=== PATIENT | female | born 1940 | race Caucasian/White ===

== ENCOUNTER → 2016-09-01 | Outpatient (CLI) | payer MEDICARE, BC ==
[~2016-09-01] MED LIST: /ACETCOD2T PO; /ESCI20TA PO; /MIRT15TA PO; ALPR0.25 PO; ALPR0.5T3 PO; AMLO10TA2 PO; AMLO5TAB2 PO; ASPI1TAB PO; ASPI81TA4 PO; ASPI81TAEC PO; ATOR1TAB19 PO; ATOR1TAB21 PO; AUGM500T34 PO; AVAP150T PO; AVAP300T23 PO; CALCCHW8 PO; CARI350T19 PO; CARI350T20 PO; CARV12.5 PO; CARV6.25 PO; CENTTAB PO; DIGO25TA PO; ESCI20TA PO; FERR325T3 PO; FLAG500T PO; FOLI1TAB2 PO; FURO20TA2 PO; FURO40TA2 PO; GASTROGRAFIN SOLUTION 30ML (Q9963) As Ordered ONE; GI COCTAIL PO; IPRA6SP; IRBE150T12 PO; IRBE300T10 PO; IRON65TA PO; ISOVUE-370 76% 100ML VIAL (Q9967) As Ordered ONE; LASI20TA PO; LEVO112T25 PO; LIDO2.5C15 TOP; LIDO2SO SS; LOPR50TA PO; MAGN200T PO; MICR10CA PO; MIRT15TA3 PO; MIRT30TA3 PO; OMEP20CA3 PO; ONDA1TAB16 PO; ONETAB16 PO; PERC5TAB6 PO; POTA10PO PO; REME15TA PO; ROPI0.25 PO; SYNT112T2 PO; TYLETAB14 PO; VITA-130 PO; VITA500T53 PO; VITMTA PO
--- NOTE | 2016-09-01 18:43 | REP ---
CT of the chest with IV contrast: Comparison is 2015. There is a focal pleural-based mass-like density posteromedially in the right lower lobe on image 65 maximally measuring 3. 9 cm demonstrating vascular enhancement. This measured 2.3 cm on the comparison study. There is pleural thickening adjacent to this lesion extending posteriorly and laterally along the right lower lobe chest wall. This pleural thickening has increased slightly. There is calcific pleural plaque posteriorly in the right lower lobe at the inferior margin of this pleural thickening. This is unchanged. There is a 10 mm nodule in the superior segment of the right lower lobe on image 57. This measured 7 mm previously. There is a 11 mm nodular density posteriorly in the right upper lobe along the superior margin of the major fissure on image 39. This measured 11 mm previously. There is a 12 mm nodule medially in the right upper lobe on image 30. This measured 12 mm previously. There are chronic fibrotic changes throughout the lung bergman bilaterally, not significantly changed. There are no acute infiltrates. There are multiple enlarged mediastinal nodes. These appear to have increased in size. No hilar lymph node enlargement is identified. No axillary lymph node enlargement. Thoracic aorta is unremarkable except for calcified atheroma. Cardiac size is enlarged, unchanged and there is no pericardial effusion. No lytic, blastic or destructive skeletal changes are identified. However, there is grade 1 compression deformity of the approximate to D 12 superior endplate, unchanged. Impression: Enlarging right lower lobe mass. Enlarging mediastinal adenopathy. Right lung nodules as identified. Pleural thickening in the right lower lobe has slightly increased. Signed by Bobby Wiggins MD 09/01/2016 06:34 P
--- NOTE | 2016-09-01 19:00 | REP ---
CT abdomen pelvis multiphase scanning without and with IV contrast. Without IV contrast scanning is performed from the diaphragms to the iliac crests. After IV contrast scan is performed during the portal venous phase of enhancement from the diaphragms to the pubic symphysis. This is followed by delayed enhanced scanning from the diaphragms to the iliac crests. Scanning with IV contrast is performed in tandem with the contrast enhanced CT study of the chest performed the same date same day utilizing the same IV contrast bolus Comparison is 11/10/2012. The hepatic parenchyma is homogeneous on all phases of the study. The common biliary duct is dilated measuring up to 11 mm transverse diameter. There is mild dilatation of the intrahepatic biliary ducts. This appears to be a change from the prior study. On the prior study. A gallbladder calculus with rim calcification was identified. This gallbladder calculus is not identified on the current study. There is no gallbladder wall thickening or pericholecystic fluid to suggest acute cholecystitis. The pancreas and spleen are normal size unremarkable. The adrenals are unremarkable. The kidneys are unremarkable. The abdominal aorta is unremarkable except for calcified atheroma and tortuosity. No retroperitoneal adenopathy is identified. There is no bowel distension. No mesenteric adenopathy. No ascites. Pelvis: The bladder, uterus and adnexa are unremarkable. There is a pessary in the vaginal vault. No pelvic adenopathy is identified. There is a trace of ascites. No lytic, blastic or destructive skeletal changes are identified. There is an old healed fracture of the left ischium. There is chronic grade 1 compression deformity of the superior endplate of the approximate L2 vertebral body, unchanged. Impression: No none adenopathy is identified. There is a trace of ascites in the pelvis. The intrahepatic and extrahepatic biliary ducts are mildly dilated as an interval change. The previous gallbladder calculus is not identified on the current study. Abdominal right upper quadrant ultrasound or MRCP might be considered for followup. There are no lytic, blastic or destructive skeletal changes. Chronic grade 1 compression deformity of the L2 vertebral body is noted. Old fracture of the left ischium is noted. There is degenerative disc disease in the lumbar spine, unchanged. Signed by Bobyb Wiggins MD 09/01/2016 06:52 P
== END ==
LOC: M RAD 13:57
PROVIDERS: ATTEND Internal Medicine Medical Oncology
DX: C34.90 Malignant neoplasm of unspecified part of unspecified bronchus or lung (principal)
CPT/HCPCS: 71260; 74178; Q9963; Q9967

== ENCOUNTER → 2016-09-06 | Outpatient (REF) | payer MEDICARE, BC ==
[~2016-09-06] MED LIST changes: -GASTROGRAFIN SOLUTION 30ML (Q9963) As Ordered ONE; -ISOVUE-370 76% 100ML VIAL (Q9967) As Ordered ONE; +PROC10TA PO; +SPIR25TA2 PO
== END ==
LOC: M LAB REF 16:29
PROVIDERS: ATTEND Internal Medicine Medical Oncology
DX: C34.90 Malignant neoplasm of unspecified part of unspecified bronchus or lung (principal)

== ENCOUNTER 2016-09-09 01:07 | Inpatient (IN) | payer MEDICARE, BC ==
[~2016-09-09] VITALS: Ht 160 cm; Wt 51.3 kg
[~2016-09-09 01:07] MED LIST changes: -PROC10TA PO; -SPIR25TA2 PO
[2016-09-09 01:40] LABS: ABG BASE EXCESS -5.8 (-2.0-2.0); ABG DEVICE NASAL CANN; ABG HCO3 20.3 MEQ/L (22.0-26.0); ABG PARTIAL PRESSURE CO2 42.4 mmHg (35.0-45.0); ABG PARTIAL PRESSURE O2 69.3 mmHg (75.0-100.0); ABG STANDARD HCO3 19.6 MEQ/L (22.0-26.0); ABG TOTAL CO2 21.6 MEQ/L (23.0-31.0); ABG pH (ARTERIAL) 7.298 UNITS (7.350-7.450)
[2016-09-09 01:53] LABS: MEAN CORPUSCULAR HGB CONC 31.8 g/dl (32.0-36.5); MEAN CORPUSCULAR VOLUME 103.5 fl (80.0-96.0); PLATELET COUNT, AUTOMATED 104 k/mm3 (150-450); RED CELL DISTRIBUTION WIDTH 14.1 % (11.5-14.5); WHITE BLOOD COUNT 13.1 K/mm3 (4.0-10.0)
[2016-09-09 02:07] LABS: BANDS 6 % (< 11); EOSINOPHILS 1 % (0-5)
[2016-09-09 02:08] LABS: TOXIC VACUOLATION 1+
[2016-09-09 02:22] LABS: INR 1.16
[2016-09-09 02:45] LABS: ALBUMIN 3.3 GM/DL (3.2-5.2); ALBUMIN/GLOBULIN RATIO 1.03 (1.00-1.93); BILIRUBIN,DIRECT 0.3 MG/DL (0.0-0.2); BILIRUBIN,TOTAL 0.5 MG/DL (0.2-1.0); CALCIUM LEVEL 7.9 MG/DL (8.8-10.2); CREATININE FOR GFR 1.85 MG/DL (0.55-1.02); GLOMERULAR FILTRATION RATE 28.3 (>39); POTASSIUM SERUM 3.8 MEQ/L (3.5-5.1); TOTAL PROTEIN 6.5 GM/DL (6.4-8.2)
[2016-09-09] MEDS ORDERED: CEFEPIME INJ 2 GM VIAL (MAXIPIME) (J0692) As Ordered ONE (02:56)
[2016-09-09 03:04] LABS: ABG pH (ARTERIAL) 7.313 UNITS (7.350-7.450)
[2016-09-09 03:05] LABS: ABG BASE EXCESS -7.6 (-2.0-2.0); ABG HCO3 17.8 MEQ/L (22.0-26.0); ABG PARTIAL PRESSURE O2 91.2 mmHg (75.0-100.0); ABG STANDARD HCO3 18.3 MEQ/L (22.0-26.0); ABG TOTAL CO2 18.9 MEQ/L (23.0-31.0)
[2016-09-09] MEDS ORDERED: ROPI0.25 PO (03:21)
[2016-09-09] MEDS ORDERED: PROC10TA PO (03:21)
[2016-09-09] MEDS ORDERED: IRBE300T10 PO (03:21)
[2016-09-09] MEDS ORDERED: FURO20TA2 PO (03:21)
[2016-09-09] MEDS ORDERED: SPIR25TA2 PO (03:21)
[2016-09-09] MEDS ORDERED: AMLO5TAB2 PO (03:30)
[2016-09-09] MEDS ORDERED: NS 1,000 ML IV SCH (04:55)
[2016-09-09] MEDS ORDERED: rOPINIRole 0.25 MG TAB(REQUIP) PO PRN (05:00)
[2016-09-09] MEDS ORDERED: IPRATROPIUM 0.06% NASAL SPRAY 15 ML (ATROVENT) PRN (05:00)
[2016-09-09] MEDS ORDERED: VANCOMYCIN HCL 750 MG, VIAL MATE ADAPTER 1 EACH in D5W 250 ML IV SCH (05:00)
[2016-09-09] MEDS ORDERED: ACETAMINOPH W/CODEINE #3 TAB UD PO PRN (05:00)
[2016-09-09] MEDS ORDERED: ONDANSETRON 4 MG TAB (S0181) PO PRN (05:00)
[2016-09-09] MEDS ORDERED: PROCHLORPERAZINE 5 MG TAB (S0183) PO PRN (05:00)
[2016-09-09] MEDS ORDERED: ALPRAZolam 0.5 MG TAB PO PRN (05:00)
[2016-09-09] MEDS ORDERED: CARISOPRODOL 350 MG TAB PO PRN (05:00)
[2016-09-09] MEDS ORDERED: LEVOTHYROXINE 0.112 MG TAB (112 MCG) PO SCH (06:00)
[2016-09-09] MEDS ORDERED: ALBUTEROL SULFATE 2.5 MG/0.5 ML INH NEB SOLN NEB PRN (06:00)
[2016-09-09] MEDS ORDERED: HEPARIN SOD (PORCINE) 5000 UNITS/ML VIAL SQ SCH (06:00)
--- NOTE | 2016-09-09 06:21 | HPEPDOC ---
General Date of Admission Sep 09, 2016 at 04:50 Primary Care Physician: PURVI SLAAMANCA DO Attending Physician: MARY LOGAN Chief Complaint The patient is a 75-year-old female admitted with a reason for visit of Sepsis Due To Pneumonia. Source: Family History of Present Illness Mrs. Rodriguez has been feeling ill for approximately the last 5-6 days. Last Tuesday or Tuesday she had 1 bout of diarrhea, and then last Tuesday she had one episode of vomiting, and ever since then she has just had some generalized malaise with no other specific symptoms. Currently, she is on BiPAP in the ED and is quite lethargic, the entire history is provided by her . He states that she has not had any fevers, chills, night sweats, or any significant /noticeable weight gain or weight loss. Her only episodes of diarrhea and vomiting are as listed above. Otherwise, she has had a decreased appetite, and poor food intake, but he states that she has been drinking sufficiently to keep herself hydrated. She has not had any cough, no chest pain, no significant shortness of breath. He states that she was awoken out of her sleep at approximately 12:30-1 AM this morning, he believes that it sounded as though she had some gunk in her throat when she was breathing, but she was not complaining of any shortness of breath, or difficulty breathing. She requested some help to get to the bathroom, and he states that he essentially had to carry her there, apparently she did not void while on the toilet. He was concerned about her increased lethargy and felt that something was wrong, therefore he decided to call the ambulance and have her transported for further evaluation in the ED. Home Medications Scheduled Amlodipine Besylate (Amlodipine Besylate) 5 Mg Tab 5 MG PO DAILY (Reported) Aspirin (Aspirin EC) 81 Mg Tabec 81 MG PO DAILY (Reported) Atorvastatin Calcium (Atorvastatin Calcium) 20 Mg Tab 20 MG PO QHS (Reported) Carvedilol (Carvedilol) 12.5 Mg Tab 12.5 MG PO BID (Reported) Cyanocobalamin (Vitamin B12) 500 Mcg Tab 1,000 MCG PO DAILY (Reported) takes at dinnertime Escitalopram Oxalate (Escitalopram Oxalate) 20 Mg Tab 20 MG PO DAILY (Reported ) Furosemide (Furosemide) 20 Mg Tab 20 MG PO DAILY (Reported) Irbesartan (Irbesartan) 300 Mg Tab 300 MG PO DAILY (Reported) Levothyroxine Sodium (Levoxyl) 112 Mcg Tab 112 MCG PO DAILY (Reported) Mirtazapine (Mirtazapine) 30 Mg Tab 30 MG PO QHS (Reported) Multivitamins *[facility] STOCKED* (Thera M Plus *[facility] STOCKED*) 1 Tab Tab 1 TAB PO DAILY (Reported) Omeprazole (Omeprazole) 20 Mg Cap 20 MG PO DAILY (Reported) Ropinirole Hydrochloride (Ropinirole HCl) 0.25 Mg Tab 0.5 MG PO QHS (Reported) Spironolactone (Spironolactone) 25 Mg Tab 25 MG PO DAILY (Reported) Scheduled PRN Acetaminophen/Codeine (Tylenol/Codeine #3 300-30 mg) 1 Tab Tab 2 TAB PO BID PRN PRN PAIN (Reported) Alprazolam (Alprazolam) 0.5 Mg Tab 0.5 MG PO Q8H PRN PRN ANXIETY (Reported) Carisoprodol (Carisoprodol) 350 Mg Tab 350 MG PO Q6H PRN PRN MUSCLE SPASMS ( Reported) Ipratropium [place] (Ipratropium [place]) 165 [place]/15 Ml Naspr 1 SPRAY NA Q6H PRN PRN POST NASAL DRIP (Reported) Ondansetron HCl (Ondansetron HCl) 8 Mg Tab 8 MG PO BID PRN PRN NAUSEA (Reported ) Prochlorperazine Maleate (Prochlorperazine Maleate) 10 Mg Tab 10 MG PO Q6H PRN PRN NAUSEA (Reported) Ropinirole Hydrochloride (Ropinirole HCl) 0.25 Mg Tab 0.5 MG PO QHS PRN PRN RESTLESS LEG SYNDROME (Reported) SCRIPT IS FOR 1-4: PATIENT'S STATES THAT SHE TAKES TWO AND IF HER LEGS ARE STILL BOTHERING HER, SHE TAKES THE OTHER 2. Allergies Coded Allergies: No Known Allergies (Unverified , 11/04/12) Past Medical History Medical History Stage IV adenocarcinoma of the lung status post multiple failed attempts at chemotherapy, radiation treatment, and pleurodesis Hypertension Hypothyroidism Hypercholesterolemia Anxiety and depression Coronary artery disease History of mantle cell lymphoma History of chronic diastolic congestive heart failure History of paraproteinemia with elevated IgM level Surgical History Coronary artery bypass graft History of Malignant pleural effusion status post talc pleurodesis Tonsillectomy Family History Significant Family History: No pertinent family hx Social History * Smoker: former Smoker (quit for 5 years ago) Alcohol: denies Drugs: denies Recent Travel/Sick Contacts: Denies: Recent travel Psychosocial History: No pertinent psych hx Social History Lives at home with her Review of Symptoms Constitutional: Reports: Fatigue, Lethargy, Malaise, Weakness, Denies: Chills, Fever, Night Sweats ENT: Denies: Dysphagia, Ear Pain, Head Aches, Sinus Congestion Skin: Denies: Breakdown, Lesions, Rash Pulmonary: Denies: Cough, Dyspnea Cardiovascular: Denies: Chest Pain, Edema, Orthopnea, Palpitations, Paroxysmal Noc. Dyspnea Gastrointestinal: Reports: Diarrhea, Nausea, Vomiting, Denies: Abdominal Pain Hematologic: Denies: Bleeding Excessively, Bruising Neurological: Reports: Weakness, Denies: Change in speech, Confusion, Numbness Psych: Reports: Mood Normal, Denies: Depression, Memory Issues Physical Examination General Exam: Positive: Other (she is quite lethargic, currently on NIPPV. She is arousable, and does appropriately answer a few questions as best she can through the mask), Negative: Alert Eye Exam: Positive: Conjunctiva & lids normal, EOMI, PERRLA, Negative: Sclera icteric ENT Exam: Positive: Atraumatic, Mucous membr. moist/pink, Pharynx Normal Neck Exam: Positive: JVD (difficult to assess JVD with BiPAP mask in place, however, but her neck veins do appear to be somewhat elevated), Supple, Negative: thyromegaly Chest Exam: Positive: Diminished, Other (a few inspiratory squeaks throughout) , Rales (predominantly on the right side, to approximately fci up the lung bergman. There is some faint rales on the left at the base) Heart Exam: Positive: Murmurs (1/6 systolic murmur), Other (splitting of S2 is noted), Rate Normal, Regular Rhythm Telemetry: Positive: No significant arrhythmia Abdomen Exam: Positive: BS Hypoactive, Soft, Negative: Hepatospenomegaly, Mass, Tenderness Extremity Exam: Positive: Normal pulses (weak but palpable in the radial and dorsalis pedis, regular), Negative: Clubbing, Cyanosis, Edema, Tenderness Skin Exam: Positive: Nl turgor and temperature, Negative: Breakdown, Lesion Psych Exam: Positive: Other (lethargic, but answers a few questions appropriately) Vital Signs Blood pressure 101/54, pulse 82, respirations 40, temperature 97.5, SPO2 is 98% on NIPPV, weight 51 kg Laboratory Data Labs 24H Laboratory Tests 2 09/09/16 01:29: Arterial Blood pH 7.298L, Arterial Blood Partial Pressure CO2 42.4, Arterial Blood Partial Pressure O2 69.3L, Arterial Blood Total CO2 21.6L, Arterial Blood HCO3 20.3L, Arterial Blood Base Excess -5.8L, Arterial Blood Oxygen Saturation 91.4L, Blood Gas Bicarbonate Standard 19.6L, Oxygen Delivery Device NASAL MELISSA 09/09/16 01:30: Activated Partial Thromboplast Time 39.3H, Aspartate Amino Transf (AST/SGOT) 14L , Alanine Aminotransferase (ALT/SGPT) 15, Alkaline Phosphatase 74, Total Bilirubin 0.5, Direct Bilirubin 0.3H, Albumin 3.3, Albumin/Globulin Ratio 1.03, Amylase Level 39, Anion Gap 11, Band Neutrophils 6, White Blood Count 13.1H, Red Blood Count 3.38L, Hemoglobin 11.1L, Hematocrit 35.0L, Mean Corpuscular Volume 103.5H, Mean Corpuscular Hemoglobin 33.0, Mean Corpuscular Hemoglobin Concent 31.8L, Red Cell Distribution Width 14.1, Platelet Count 104L, Neutrophils (%) (Auto) , Lymphocytes (%) (Auto) , Monocytes (%) (Auto) , Eosinophils (%) (Auto) , Basophils (%) (Auto) , Neutrophils # (Auto) , Lymphocytes # (Auto) , Monocytes # (Auto) , Eosinophils # (Auto) , Basophils # ( Auto) , C-Reactive Protein, Quantitative 19.60H, Calcium Level 7.9L, Eosinophils (Manual) 1, Glomerular Filtration Rate 28.3L, Lactic Acid Level 1.9 , Large Unclassified Cells # , Large Unclassified Cells % , Lymphocytes (Manual ) 3L, Macrocytosis 1+, Metamyelocytes 1H, Monocytes (Manual) 2, Neutrophils 87H , Platelet Estimate DECREASED, Prothromb Time International Ratio 1.16, Prothrombin Time 14.9H, Total Protein 6.5, Toxic Vacuolation 1+, Urine Amorphous Sediment , Urine Appearance HAZY, Urine Color YELLOW, Urine pH 5.0, Urine Specific [place] 1.015, Urine Protein 2+H, Urine Glucose (UA) NEGATIVE, Urine Ketones NEGATIVE, Urine Urobilinogen 0.2, Urine Bilirubin NEGATIVE, Urine Leukocyte Esterase NEGATIVE, Urine Bacteria (Auto) 1+H, Urine Blood NEGATIVE, Urine Calcium Carbonate Cryst(Auto) , Urine Calcium Oxalate Cryst (Auto) , Urine Calcium Phosphate Crissy (Auto) , Urine Cellular Casts , Urine Cystine Crystals , Urine Granular Casts (Auto) , Urine Hyaline Casts (Auto) 3, Urine Leucine Crystals , Urine Mucus (Auto) SMALL, Urine Nitrite NEGATIVE, Urine Oval Fat Bodies (Auto) , Urine RBC (Auto) 0, Urine Renal Epithelial Cells , Urine Sperm (Auto) , Urine Squamous Epithelial Cells 0, Urine Transitional Epithelial Cells , Urine Trichomonas (Auto) , Urine Triple Phosphate Cryst (Auto) , Urine Tyrosine Crystals , Urine Uric Acid Crystals (Auto) , Urine WBC (Auto) 1, Urine Waxy Casts (Auto) , Urine Yeast-Like Cells (Auto) 09/09/16 02:41: Arterial Blood pH 7.313L, Arterial Blood Partial Pressure CO2 36.0, Arterial Blood Partial Pressure O2 91.2, Arterial Blood Total CO2 18.9L, Arterial Blood HCO3 17.8L, Arterial Blood Base Excess -7.6L, Arterial Blood Oxygen Saturation 96.1, Blood Gas Bicarbonate Standard 18.3L CBC/BMP Laboratory Tests 09/09/16 01:30 Red Blood Count 3.38 L, Mean Corpuscular Volume 103.5 H, Mean Corpuscular Hemoglobin 33.0, Mean Corpuscular Hemoglobin Concent 31.8 L, Red Cell Distribution Width 14.1, Neutrophils (%) (Auto) , Lymphocytes (%) (Auto) , Monocytes (%) (Auto) , Eosinophils (%) (Auto) , Basophils (%) (Auto) , Neutrophils # (Auto) , Lymphocytes # (Auto) , Monocytes # (Auto) , Eosinophils # (Auto) , Basophils # (Auto) Microbiology Microbiology 09/09/16 Blood Culture, Received Pending 09/09/16 Urine Culture, Received Pending (1) Sepsis due to pneumonia Status: Acute (2) Acute respiratory failure Status: Acute (3) AZALEA (acute kidney injury) Status: Acute (4) Pleural effusion on right Status: Chronic (5) Anxiety and depression Status: Chronic (6) Hypothyroidism Status: Chronic (7) Coronary artery disease involving coronary bypass graft Status: Chronic (8) Diastolic CHF Status: Chronic (9) HTN (hypertension) Status: Chronic (10) Adenocarcinoma of left lung Permanent Comment: Stage IV Last Edited By: Bobby Cesar on Sep 09, 2016 06 :07 Status: Chronic Assessment & Plan: Oncologist is Dr. Sophia CROWELL Plan / VTE VTE Prophylaxis Ordered?: Yes (Lovenox) Plan Plan Will admit the patient to the ICU, and consult pulmonology regarding the management of the NIPPV. Chest x-ray in the ED has patchy infiltrate in the right upper lobe that is suspicious for pneumonia, she also has a chronic yet worsening right-sided pleural effusion. We will treat her empirically with vancomycin and Zosyn renally dosed. Blood, urine, and sputum cultures ordered. For her acute kidney injury, we will hold her lisinopril and ARB, and put her on fluids of 75 mils per hour. She does meet the criteria for sepsis, however she has adequate blood pressure, and appears to be euvolemic at this time, but in the setting of her chronic diastolic heart failure I think giving her bolus would put her into volume overload. Otherwise we will continue her Norvasc and Carvedilol for her chronic HTN & CHF. Otherwise, will continue the remainder of her home medications at their usual doses for her chronic conditions DVT prophylaxis with lovenox renally dosed in the setting of malignancy. She is DNR/DNI; a MOSLT form is included in her chart, and this was also discussed with her in the ED GME ATTESTATION GME ATTESTATION My preceptor for this patient encounter was physically present in the building during the encounter and was fully available. As needed, all aspects of the patient interview, examination, medical decision making process, and medical care plan development were reviewed and approved by the preceptor. Preceptor is aware and concurs with the plan as stated in the body of this note and will attest to such by his/her cosignature. ATTENDING NOTE I, Mary Logan, have seen and examined the above patient and agree with the assessment and plan as documented by Dr. Cesar. BOBBY CESAR DO Sep 09, 2016 06:21 MARY LOGAN Sep 09, 2016 06:48
[2016-09-09] MEDS ORDERED: ACETAMINOPH W/CODEINE #3 TAB UD As Ordered ONE (06:45)
[2016-09-09] MEDS ORDERED: IPRATROPIUM 0.5MG/ALBUTEROL 2.5MG INH SOL UD 3ML (DUONEB)(J7620) As Ordered ONE (06:52)
[2016-09-09 07:16] LABS: MEAN CORPUSCULAR HEMOGLOBIN 32.7 pg (27.0-33.0); MEAN CORPUSCULAR HGB CONC 30.7 g/dl (32.0-36.5); MEAN CORPUSCULAR VOLUME 106.5 fl (80.0-96.0); PLATELET COUNT, AUTOMATED 111 k/mm3 (150-450); RED CELL DISTRIBUTION WIDTH 13.9 % (11.5-14.5); WHITE BLOOD COUNT 10.9 K/mm3 (4.0-10.0)
--- NOTE | 2016-09-09 07:28 | ECGEPIP ---
Stationary ECG Study [facility] - ED Test Date: 2016-09-09 Pat Name: KEL ALEXANDER Department: Room: [place] [address] Gender: F Tax Clerk: MARYCRUZ : 1940 Requested By: Sandip Whitman Order Number: [id number] Reading MD: Lucretia Burks Measurements Intervals [place] Rate: 93 P: 59 [place]: 158 QRS: -41 QRSD: 92 T: 114 QT: 358 QTc: 446 Interpretive Statements SINUS RHYTHM POSSIBLE LEFT ATRIAL ENLARGEMENT MARKED LEFT AXIS DEVIATION LEFT VENTRICULAR HYPERTROPHY AND ST-T CHANGE VS ISCHEMIA Electronically Signed On 09-09-2016 7:28:12 EST by Lucretia Burks
[2016-09-09 07:40] LABS: CALCIUM LEVEL 8.8 MG/DL (8.8-10.2); CREATININE FOR GFR 2.21 MG/DL (0.55-1.02); POTASSIUM SERUM 3.9 MEQ/L (3.5-5.1)
[2016-09-09 07:59] VITALS: BP 152/68
[2016-09-09] MEDS ORDERED: IPRATROPIUM 0.5MG/ALBUTEROL 2.5MG INH SOL UD 3ML (DUONEB)(J7620) NEB SCH (08:00)
[2016-09-09 08:10] LABS: BANDS 9 % (< 11)
[2016-09-09 08:11] LABS: DOHLE BODIES 1+; HYPOCHROMASIA 2+; TOXIC GRANULATION 1+
[2016-09-09] MEDS ORDERED: METAL LOCK LOOP XX ONE (08:22)
[2016-09-09] MEDS ORDERED: ALPRAZolam 0.25 MG TAB As Ordered ONE (08:26)
--- NOTE | 2016-09-09 08:56 | EDDOCDS ---
Nurse's Notes [facility] Name: Sharmila Alexander Age: 75 yrs Sex: Female : 1940 Arrival Date: 09/09/2016 Time: 01:07 Bed 3 Private MD: Maritza Diagnosis: Acute respiratory failure;Bronchopneumonia, unspecified organism-RUL;Malignant neoplasm of lower lobe, right bronchus or lung;Sepsis, unspecified organism Presentation: 09/09 01:13 Presenting complaint: EMS states: pt found in bed in resp distress, hx lung cancer. mlc SPO2 was low 60s upon EMS arrival. CPAP applied by EMS, SPO2 96%. pt lethargic upon arrival. Adult Sepsis Screening: Patient has new or worsening altered mentation (1 point). Patient has a respiratory rate of greater than or equal to 22 (1 point). Systolic blood pressure is greater than 100. Patient has a qSOFA score of 2. Patient has cough and/or SOB- Positive Sepsis Screen. Patient made CHANCE Level 2. Patient placed in exam room. Suicide/Homicide risk assessment- Unable to assess. Status: Patient is not a canine service teacher or dependent. Transition of care: patient was not received from another setting of care. 01:13 Acuity: CHANCE Level 2 [facility] [place]:13 Method Of Arrival: [place] [facility] [place] Assessment: 01:13 General: Appears ill, Behavior is drowsy. The patient is triaged at the bedside. See mlc Assessment in Nurses Notes section of ED record. Neurological: Level of Consciousness is lethargic. Cardiovascular: Rhythm is regular. Respiratory: Onset: The symptoms/episode began/occurred at an unknown time. Airway is patent Respiratory effort is labored, with retractions, Respiratory pattern is tachypnea. Derm: Skin is pale. 02:14 Pain: Denies pain. cf2 Historical: - Allergies: no known allergies; - Home Meds: 1. Tylenol #3 Oral 2 tabs twice a day as needed 2. Synthroid 112 mcg Oral tab 1 tab once daily 3. ropinirole 0.25 mg oral tab 1 tab nightly 4. ondansetron HCl 8 mg Oral tab 1 tab 2 times per day as needed 5. omeprazole 20 mg Oral cpDR 1 cap once daily 6. irbesartan 150 mg oral tab 1 tab once daily 7. mirtazapine 15 mg Oral tab 1 tab nightly 8. furosemide 20 mg Oral tab 1 tab once daily 9. folic acid 1 mg Oral tab 1 tab once daily 10. escitalopram oxalate 20 mg oral tab 1 tab once daily 11. carvedilol 12.5 mg oral tab 1 tab 2 times per day 12. alprazolam 0.25 mg Oral tab 1 tab every 8 hours as needed 13. carisoprodol 350 mg Oral tab 1 tab every 6 hours as needed 14. atorvastatin 20 mg oral tab 1 tab once daily - PMHx: Acute cystitis; Depression; Hypertension; lung cancer; Thyroid irradiated; - PSHx: Infusaport insertion; open heart surgery; chemotherapy; - The history from nurses notes was reviewed: but there are no nursing notes, or only partial notes available at the time of my charting. - Social history: Smoking status: unknown if patient ever smoked tobacco. Not able to communicate due to their condition. - : The pt / caregiver states he / she is not on anticoagulants. Home medication list is obtained from pill bottles. - Exposure Risk Screening:: None identified. - Immunization history:: unknown. - Family history: Not pertinent. - Social history:: unknown. Screenin:18 Advance Directives: There is an active DNR order but there is no copy available at this mlc time. There is a living will, but a copy is not available at this time. 04:02 Screening information is obtained from the patient, . Fall risk: No risks cf2 identified. Assistance ADL's: requires no assistance with activities of daily living. Abuse/DV Screen: The patient / caregiver reports he/she is: not in a situation that causes fear, pain or injury. Nutritional screening: No deficits noted. home support is adequate. Assessment: 01:14 General: Appears distressed, ill, Behavior is anxious, restless, Patient in severe cf2 respiratory distress unable to answer questions. Per , patient has lung cancer and just had CT scan last Tuesday that revealed cancer has increased after patient was unable to tolerate chemotherapy. Per , patient had "to have blood transfusions and platelets from the chemo, so they stopped it". Per , patient with N/V/D Tuesday and Tuesday and then felt better but tonight sudden rapid onset of shortness of breath. . Pain: Denies pain. Neurological: No deficits noted. EENT: No deficits noted. Cardiovascular: Rhythm is sinus rhythm. Cardiovascular: Chest pain is denied. Respiratory: Airway is compromised Respiratory effort is labored, grunting, using tripod position, Respiratory pattern is tachypnea Breath sounds are absent the patient has severe shortness of breath. GI: No deficits noted. Parent/caregiver reports the patient having diarrhea, nausea, vomiting. : No deficits noted. Derm: No deficits noted. Musculoskeletal: No deficits noted. 03:54 Adult Sepsis Screening: The patient does not have new or worsening altered mentation. cf2 Patient's respiratory rate is less than 22. Systolic blood pressure is greater than 100. Patient has a qSOFA score of 0- Negative Sepsis Screen. 04:02 Reassessment: Patient states feeling better. Patient states symptoms have improved. cf2 Patient able to speak with CPAP in place. More awake and O2 sats are holding mid-high 90's. No s/s resp distress at present time . 06:44 General: Attempted report to ICU. Awaiting call back . cf2 07:21 Reassessment: Patient appears in no apparent distress at this time. Neurological: Level kr3 of Consciousness is awake. 08:32 General: Appears comfortable, Behavior is appropriate for age. Neurological: Level of kr3 Consciousness is awake, alert. Respiratory: Airway is patent Respiratory effort is even, labored. : Moseley in place to gravity drainage. Derm: Skin is clammy, Skin is normal. Vital Signs: 01:10 BP 154 / 68 (auto/); cf2 01:12 Pulse Ox 80% ; cf2 01:13 BP 126 / 58; Pulse 97; Resp 40; Temp 97.8(TE); Pulse Ox 91% on BiPAP; Weight 51.26 kg; mlc 01:13 Pulse Ox 77% ; cf2 01:14 Pulse 100 MON; Pulse Ox 78% ; cf2 01:14 Temp 97.5; cf2 01:15 BP 126 / 58 (auto/); cf2 01:16 Pulse 98 MON; Pulse Ox 89% ; cf2 01:30 BP 92 / 58 (auto/); cf2 01:31 Pulse 93 MON; Pulse Ox 91% ; cf2 01:45 BP 106 / 59 (auto/); cf2 01:46 Pulse 84 MON; Pulse Ox 98% ; cf2 01:47 Pulse 85 MON; Pulse Ox 98% ; cf2 02:00 BP 101 / 58 (auto/); cf2 02:01 Pulse 87 MON; Pulse Ox 98% ; cf2 02:15 Pulse 85 MON; Pulse Ox 97% ; cf2 02:15 BP 116 / 60 (auto/); cf2 02:30 BP 116 / 57 (auto/); cf2 02:31 Pulse 87 MON; Pulse Ox 98% ; cf2 02:45 BP 117 / 58 (auto/); cf2 02:46 Pulse 84 MON; Pulse Ox 96% ; cf2 03:00 BP 110 / 50 (auto/); cf2 03:01 Pulse 81 MON; Pulse Ox 97% ; cf2 03:03 Pulse 80 MON; Pulse Ox 100% ; cf2 03:08 Pulse 77 MON; Pulse Ox 85% ; cf2 03:15 BP 107 / 54 (auto/); cf2 03:17 Pulse 79 MON; Pulse Ox 91% ; cf2 03:23 Pulse 79 MON; Pulse Ox 96% ; cf2 03:26 Pulse 79 MON; Pulse Ox 97% ; cf2 03:30 Pulse 79 MON; Pulse Ox 97% ; cf2 03:33 Pulse 79 MON; Pulse Ox 97% ; cf2 03:36 Pulse 79 MON; Pulse Ox 97% ; cf2 03:39 Pulse 78 MON; Pulse Ox 97% ; cf2 03:43 Pulse 78 MON; Pulse Ox 97% ; cf2 03:47 Pulse 78 MON; Pulse Ox 97% ; cf2 03:52 Pulse 78 MON; Pulse Ox 97% ; cf2 04:13 Pulse 80 MON; Pulse Ox 97% ; cf2 04:16 Pulse 79 MON; Pulse Ox 98% ; cf2 04:20 Pulse 81 MON; Pulse Ox 97% ; cf2 04:22 Pulse 81 MON; Pulse Ox 98% ; cf2 04:26 Pulse 82 MON; Pulse Ox 97% ; cf2 04:32 Pulse 86 MON; Pulse Ox 98% ; cf2 04:35 Pulse 83 MON; Pulse Ox 97% ; cf2 04:36 BP 101 / 54 (auto/); cf2 04:37 Pulse 81 MON; Pulse Ox 97% ; cf2 04:41 Pulse 82 MON; Pulse Ox 97% ; cf2 04:44 Pulse 82 MON; Pulse Ox 97% ; cf2 04:46 Pulse 82 MON; Pulse Ox 98% ; cf2 05:31 Pulse 88 MON; Pulse Ox 93% ; cf2 05:31 BP 131 / 75; cf2 05:36 Pulse 95 MON; Pulse Ox 90% ; cf2 05:40 Pulse 95 MON; Pulse Ox 92% ; cf2 05:46 Pulse 90 MON; Pulse Ox 94% ; cf2 05:53 Pulse 90 MON; Pulse Ox 91% ; cf2 05:58 Pulse 92 MON; Pulse Ox 89% ; cf2 06:04 Pulse 99 MON; Pulse Ox 88% ; cf2 06:11 Pulse 96 MON; Pulse Ox 92% ; cf2 06:16 Pulse 96 MON; Pulse Ox 93% ; cf2 06:23 Pulse 97 MON; Pulse Ox 92% ; cf2 06:27 Pulse 100 MON; Pulse Ox 92% ; cf2 06:31 Pulse 101 MON; Pulse Ox 94% ; cf2 06:36 Pulse 102 MON; Pulse Ox 90% ; cf2 07:23 BP 146 / 68; Pulse 100; Resp 40; Pulse Ox 95% on BiPAP; kr3 07:52 BP 152 / 68; Pulse 100; Resp 42; Temp 99.9(T); Pulse Ox 96% on 60% BiPAP; kr3 Vitals: 01:13 Log In Time N/A - [place] [facility] [place] Course: 01:08 Patient visited by Christelle Fung, Supervisor Stage Carpentry. ml3 01:08 Maritza is Private Physician. ml3 01:08 Patient moved to Waiting ml3 01:08 Patient moved to 3 ml3 01:14 The patient / caregiver is instructed regarding the plan of care and ED course. Patient cf2 has correct armband on for positive identification. Placed in gown. Bed in low position. Call light in reach. Side rails up X 1. Side rails up X2. Adult w/ patient. monitoring engineer on. Pulse ox on. NIBP on. Property :Personal belongings accompany Pt. Door closed. Noise minimized. Visitors limited. Lights dimmed. Moved to private room. Verbal reassurance given. Warm blanket given. Pillow given. Head of bed elevated. Diet: Patient is NPO. Cleaned of incontinence. 01:14 Accessed using accessed w/ # 20 Flood needle, sterile technique, per hospital protocol. cf2 InfusaPort in patient's right chest wall. Clean & dry. Dressing intact. Good blood return. Flushes easily. No procedures done that require assistance. Moseley cath inserted 16 Fr. Balloon inflated. To gravity drainage. Urine specimen collected. Patient placed on CPAP. 01:15 Sandip Castellanos MD is Attending Physician. pc 01:15 Triage Initiated mlc 01:24 Patient visited by Sandip Castellanos MD. pc 01:32 -Arterial Blood Gas Sent. bb3 01:34 Patient visited by Frank Barillas PCA. kb5 01:34 EKG done. (by ED staff). Reviewed by Sandip Castellanos MD. kb5 01:40 Jenniffer Pelayo RN is Primary Nurse. cf2 01:40 Patient visited by Jenniffer Pelayo RN. cf2 01:44 Patient moved to Radiology arabelal 01:44 Patient moved to 3 arabella 02:00 DIFFERENTIAL NO CHARGE Sent. pc 02:53 Urinalysis Sent. cf2 02:53 Urine Culture Sent. cf2 02:59 ARTERIAL BLOOD GAS Sent. bb3 03:06 Patient visited by Jenniffer ePlayo RN. cf2 03:10 Patient visited by Jenniffer Pelayo RN. cf2 03:11 Mary Logan is Hospitalizing Provider. pc 03:30 [facility] Payment Agreement was scanned into [employer] and attached to record. hs2 03:54 Patient visited by Jenniffer Pelayo RN. cf2 04:09 Patient visited by Jenniffer Pelayo RN. cf2 04:24 Patient visited by Jenniffer Pelayo RN. cf2 04:48 Patient visited by Jenniffer Pelayo RN. cf2 05:00 Patient visited by Jenniffer Pelayo RN. cf2 05:07 Patient visited by Jenniffer Pelayo RN. cf2 06:40 Patient visited by Jenniffer Pelayo RN. cf2 06:44 Patient visited by Jenniffer Pelayo RN. cf2 07:20 Patient placed on CPAP Expiratory Pressure 6cm of H2O FIO2 60%, Rate 8Breath/Min. kr3 07:36 EKG-ADULT Returned. EDMS Administered Medications: 02:00 Drug: heparin 100units/mL flush (infusaport) 5 ml [heparin, porcine (PF) 10 unit/mL cf2 intravenous syringe (5 mL)] Route: IVP; Site: left antecubital; 02:55 Drug: Cefepime 2 grams [cefepime 2 gram solution for injection] Route: IVPB; Rate: 100 cf2 mL/hr; Infused Over: 30 mins; Site: left antecubital; 06:58 Drug: Acetaminophen-Codeine 2 tabs [acetaminophen 300 mg-codeine 30 mg tablet (2 tabs)] cf2 Route: PO; 07:24 Follow up: Response: Pain is decreased kr3 07:19 Drug: NS 0.9% 1000 ml [sodium chloride 0.9 % intravenous solution] Route: IV; Rate: 75 kr3 mL/hr; Site: Implantable Access Device; 07:35 Follow up: IV Status: Infusion continued upon admit kr3 08:32 Drug: ALPRAZolam 0.5 mg [alprazolam 0.25 mg tablet (2 tabs)] Route: PO; kr3 Intake: 04:02 IV: 100.00ml; Total: 100.00ml. cf2 Output: 04:02 Urine: 200.00ml; Stool: 2 (Loose Stool) ; Total: 200.00ml. cf2 08:54 Urine: 160.00ml (Moseley); Stool: 1 (Loose Stool) ; Total: 360.00ml. kr3 RT: 01:15 BIPAP: Inspiratory Pressure: 14, Expiratory Pressure: 8, Backup Rate: 10, FiO2: 60%, bb3 Full face fask. Respiratory: Respiratory effort is even, labored, Respiratory pattern is regular symmetrical, agonal tachypnea 53 Breath sounds are coarse Breath sounds with crackles bilaterally. sp02 90%. Arrived via EMS on CPAP. 01:16 Respiratory: vt approx 280-310ml. bb3 01:17 Respiratory: pt lethargic. bb3 01:32 ABG's drawn from left radial artery pressure held for 5 minutes no bleeding noted bb3 pressure bandage applied specimen sent pt. tolerated well. Respiratory: BIPAP 14/8 60%. 02:59 ABG's drawn from left radial artery pressure held for 5 minutes no bleeding noted bb3 pressure bandage applied specimen sent pt. tolerated well. Respiratory: BIPAP 14/8 60% RR trending mid 40s vt approx 350-400ml. 04:53 BIPAP: FiO2: 50%. bb3 06:02 BIPAP: Inspiratory Pressure: 16, Expiratory Pressure: 6, Backup Rate: 8, FiO2: 50%. bb3 Respiratory: per dr dallas order. Order Results: Lab Order: -Arterial Blood Gas; SPEC'M 09/09/16 01:29 Test: ABG pH (ARTERIAL); Value: 7.298; Range: 7.350-7.450; Abnormal: Below low normal; Units: UNITS; Status: F Test: ABG PARTIAL PRESSURE CO2; Value: 42.4; Range: 35.0-45.0; Units: mmHg; Status: F Test: ABG PARTIAL PRESSURE O2; Value: 69.3; Range: 75.0-100.0; Abnormal: Below low normal; Units: mmHg; Status: F Test: ABG TOTAL CO2; Value: 21.6; Range: 23.0-31.0; Abnormal: Below low normal; Units: MEQ/L; Status: F Test: ABG HCO3; Value: 20.3; Range: 22.0-26.0; Abnormal: Below low normal; Units: MEQ/L; Status: F Test: ABG BASE EXCESS; Value: -5.8; Range: -2.0-2.0; Abnormal: Below low normal; Status: F Test: ABG STANDARD HCO3; Value: 19.6; Range: 22.0-26.0; Abnormal: Below low normal; Units: MEQ/L; Status: F Test: ABG O2 SATURATION; Value: 91.4; Range: 95.0-99.0; Abnormal: Below low normal; Units: %; Status: F Test: ABG DEVICE; Value: NASAL MELISSA; Status: F Lab Order: Basic Metabolic Profile; SPEC'M 09/09/16 01:30 Test: GLUCOSE, FASTING; Value: 93; Range: 83-110; Units: MG/DL; Status: F Test: BLOOD UREA NITROGEN; Value: 27; Range: 7-18; Abnormal: Above high normal; Units: MG/DL; Status: F Test: CREATININE FOR GFR; Value: 1.85; Range: 0.55-1.02; Abnormal: Above high normal; Units: MG/DL; Status: F Test: GLOMERULAR FILTRATION RATE; Value: 28.3; Range: >39; Abnormal: Below low normal; Status: F Test: SODIUM LEVEL; Value: 141; Range: 136-145; Units: MEQ/L; Status: F Test: POTASSIUM SERUM; Value: 3.8; Range: 3.5-5.1; Units: MEQ/L; Status: F Test: CHLORIDE LEVEL; Value: 108; Range: 98-107; Abnormal: Above high normal; Units: MEQ/L; Status: F Test: CARBON DIOXIDE LEVEL; Value: 22; Range: 21-32; Units: MEQ/L; Status: F Test: ANION GAP; Value: 11; Range: 8-16; Units: MEQ/L; Status: F Test: CALCIUM LEVEL; Value: 7.9; Range: 8.8-10.2; Abnormal: Below low normal; Units: MG/DL; Status: F Test Note: ; Units are mL/min/1.73 m2 Chronic Kidney Disease Staging per NKF: Stage I & II GFR >=60 Normal to Mildly Decreased Stage III GFR 30-59 Moderately Decreased Stage IV GFR 15-29 Severely Decreased Stage V GFR <15 Very Little GFR Left ESRD GFR <15 on SPINDLE FRAME CARVER Lab Order: CBC with Diff; SPEC'M 09/09/16 01:30 Test: WHITE BLOOD COUNT; Value: 13.1; Range: 4.0-10.0; Abnormal: Above high normal; Units: K/mm3; Status: F Test: RED BLOOD COUNT; Value: 3.38; Range: 4.00-5.40; Abnormal: Below low normal; Units: M/mm3; Status: F Test: HEMOGLOBIN; Value: 11.1; Range: 12.0-16.0; Abnormal: Below low normal; Units: g/dl; Status: F Test: HEMATOCRIT; Value: 35.0; Range: 36.0-47.0; Abnormal: Below low normal; Units: %; Status: F Test: MEAN CORPUSCULAR VOLUME; Value: 103.5; Range: 80.0-96.0; Abnormal: Above high normal; Units: fl; Status: F Test: MEAN CORPUSCULAR HEMOGLOBIN; Value: 33.0; Range: 27.0-33.0; Units: pg; Status: F Test: MEAN CORPUSCULAR HGB CONC; Value: 31.8; Range: 32.0-36.5; Abnormal: Below low normal; Units: g/dl; Status: F Test: RED CELL DISTRIBUTION WIDTH; Value: 14.1; Range: 11.5-14.5; Units: %; Status: F Test: PLATELET COUNT, AUTOMATED; Value: 104; Range: 150-450; Abnormal: Below low normal; Units: k/mm3; Status: F Test: NEUTROPHILS; Value: 87; Range: 35-75; Abnormal: Above high normal; Units: %; Status: F Test: BANDS; Value: 6; Range: < 11; Units: %; Status: F Test: LYMPHOCYTES; Value: 3; Range: 16-52; Abnormal: Below low normal; Units: %; Status: F Test: MONOCYTES; Value: 2; Range: 0-8; Units: %; Status: F Test: EOSINOPHILS; Value: 1; Range: 0-5; Units: %; Status: F Test: METAMYELOCYTES; Value: 1; Range: 0-0; Abnormal: Above high normal; Units: %; Status: F Test: MACROCYTOSIS; Value: 1+; Status: F Test: TOXIC VACUOLATION; Value: 1+; Status: F Lab Order: PLATELET ESTIMATE; SPEC09/09/16 01:30 Test: PLATELET ESTIMATE; Value: DECREASED; Range: NORMAL; Status: F Lab Order: Lactic Acid (Bernal tube on ice); SPEC09/09/16 01:30 Test: LACTIC ACID LEVEL, LACTATE; Value: 1.9; Range: 0.4-2.0; Units: MMOL/L; Status: F Lab Order: PT/INR; 09/09/16 01:30 Test: PROTHROMBIN TIME; Value: 14.9; Range: 12.3-14.5; Abnormal: Above high normal; Units: SECONDS; Status: F Test: INR; Value: 1.16; Status: F Test Note: ; THERAPUTIC HUMAN INR VALUES INDICATIONS NORMAL RANGES PROPHYLAXIS/TREATMENT OF: VENOUS THROMBOSIS 2.0-3.0 PULMONARY EMBOLISM 2.0-3.0 PREVENTION OF SYSTEMIC EMBOLISM FROM: TISSUE HEART VALVES 2.0-3.0 ACUTE MYOCARDIAL INFARCTION 2.0-3.0 VALVULAR HEART DISEASE 2.0-3.0 ATRIAL FIBRILLATION 2.0-3.0 MECHANICAL VALVES(HIGH RISK) 2.5-3.5 RECURRENT MYOCARDIAL INFARCTION 2.5-3.5 Lab Order: PTT; [facility] 09/09/16 01:30 Test: PARTIAL THROMBOPLASTIN TIME; Value: 39.3; Range: 26.6-37.1; Abnormal: Above high normal; Units: SECONDS; Status: F Lab Order: Type & Screen; [facility] 09/09/16 02:39 Test: BLOOD TYPE; Value: O POS; Status: F Test: AB SCREEN (INDIRECT ALEJANDRO)GEL; Value: NEGATIVE; Status: F Lab Order: Urinalysis; [facility] 09/09/16 01:30 Test: APPEARANCE, URINE; Value: HAZY; Range: CLEAR; Status: F Test: COLOR, URINE; Value: YELLOW; Range: YELLOW; Status: F Test: PH,URINE; Value: 5.0; Range: 5.0-9.0; Units: UNITS; Status: F Test: SPECIFIC GRAVITY URINE AUTO; Value: 1.015; Range: 1.002-1.035; Status: F Test: PROTEIN, URINE AUTO; Value: 2+; Range: NEGATIVE; Abnormal: Above high normal; Units: mg/dL; Status: F Test: GLUCOSE, URINE (UA) AUTO; Value: NEGATIVE; Range: NEGATIVE; Units: mg/dL; Status: F Test: KETONE, URINE AUTO; Value: NEGATIVE; Range: NEGATIVE; Units: mg/dL; Status: F Test: UROBILINOGEN, URINE AUTO; Value: 0.2; Range: 0.0-2.0; Units: mg/dL; Status: F Test: BILIRUBIN, URINE AUTO; Value: NEGATIVE; Range: NEGATIVE; Status: F Test: NITRITE, URINE AUTO; Value: NEGATIVE; Range: NEGATIVE; Status: F Test: LEUKOCYTE ESTERASE, URINE AUTO; Value: NEGATIVE; Range: NEGATIVE; Status: F Test: BLOOD, URINE BLOOD; Value: NEGATIVE; Range: NEGATIVE; Status: F Test: WBC, URINE AUTO; Value: 1; Range: 0-3; Units: /HPF; Status: F Test: RBC, URINE AUTO; Value: 0; Range: 0-3; Units: /HPF; Status: F Test: BACTERIA, URINE AUTO; Value: 1+; Range: NEGATIVE; Abnormal: Above high normal; Status: F Test: SQUAMOUS EPITHELIAL CELL UR AU; Value: 0; Range: 0-6; Units: /HPF; Status: F Test: MUCUS, URINE; Value: SMALL; Range: NEGATIVE; Status: F Test: HYALINE CAST, URINE AUTO; Value: 3; Range: 0-1; Units: /LPF; Status: F Lab Order: AMYLASE; [facility] 09/09/16 01:30 Test: AMYLASE; Value: 39; Range: 25-115; Units: U/L; Status: F Lab Order: C REACTIVE PROTEIN QUANTITATIV; 09/09/16 01:30 Test: C REACTIVE PROTEIN QUANTITATIV; Value: 19.60; Range: 0.00-0.30; Abnormal: Above high normal; Units: MG/DL; Status: F Lab Order: LIVER PROFILE; 09/09/16 01:30 Test: AST/SGOT; Value: 14; Range: 15-37; Abnormal: Below low normal; Units: U/L; Status: F Test: ALT/SGPT; Value: 15; Range: 12-78; Units: U/L; Status: F Test: ALKALINE PHOSPHATASE; Value: 74; Range: 45-117; Units: U/L; Status: F Test: BILIRUBIN,TOTAL; Value: 0.5; Range: 0.2-1.0; Units: MG/DL; Status: F Test: BILIRUBIN,DIRECT; Value: 0.3; Range: 0.0-0.2; Abnormal: Above high normal; Units: MG/DL; Status: F Test: TOTAL PROTEIN; Value: 6.5; Range: 6.4-8.2; Units: GM/DL; Status: F Test: ALBUMIN; Value: 3.3; Range: 3.2-5.2; Units: GM/DL; Status: F Test: ALBUMIN/GLOBULIN RATIO; Value: 1.03; Range: 1.00-1.93; Status: F Lab Order: ARTERIAL BLOOD GAS; 09/09/16 02:41 Test: ABG pH (ARTERIAL); Value: 7.313; Range: 7.350-7.450; Abnormal: Below low normal; Units: UNITS; Status: F Test: ABG PARTIAL PRESSURE CO2; Value: 36.0; Range: 35.0-45.0; Units: mmHg; Status: F Test: ABG PARTIAL PRESSURE O2; Value: 91.2; Range: 75.0-100.0; Units: mmHg; Status: F Test: ABG TOTAL CO2; Value: 18.9; Range: 23.0-31.0; Abnormal: Below low normal; Units: MEQ/L; Status: F Test: ABG HCO3; Value: 17.8; Range: 22.0-26.0; Abnormal: Below low normal; Units: MEQ/L; Status: F Test: ABG BASE EXCESS; Value: -7.6; Range: -2.0-2.0; Abnormal: Below low normal; Status: F Test: ABG STANDARD HCO3; Value: 18.3; Range: 22.0-26.0; Abnormal: Below low normal; Units: MEQ/L; Status: F Test: ABG O2 SATURATION; Value: 96.1; Range: 95.0-99.0; Units: %; Status: F Lab Order: BASIC METABOLIC PROFILE; [facility] 09/09/16 07:00 Test: GLUCOSE, FASTING; Value: 92; Range: 83-110; Units: MG/DL; Status: F Test: BLOOD UREA NITROGEN; Value: 32; Range: 7-18; Abnormal: Above high normal; Units: MG/DL; Status: F Test: CREATININE FOR GFR; Value: 2.21; Range: 0.55-1.02; Abnormal: Above high normal; Units: MG/DL; Status: F Test: GLOMERULAR FILTRATION RATE; Value: 23.0; Range: >39; Abnormal: Below low normal; Status: F Test: SODIUM LEVEL; Value: 141; Range: 136-145; Units: MEQ/L; Status: F Test: POTASSIUM SERUM; Value: 3.9; Range: 3.5-5.1; Units: MEQ/L; Status: F Test: CHLORIDE LEVEL; Value: 108; Range: 98-107; Abnormal: Above high normal; Units: MEQ/L; Status: F Test: CARBON DIOXIDE LEVEL; Value: 20; Range: 21-32; Abnormal: Below low normal; Units: MEQ/L; Status: F Test: ANION GAP; Value: 13; Range: 8-16; Units: MEQ/L; Status: F Test: CALCIUM LEVEL; Value: 8.8; Range: 8.8-10.2; Units: MG/DL; Status: F Test Note: ; Units are mL/min/1.73 m2 Chronic Kidney Disease Staging per NKF: Stage I & II GFR >=60 Normal to Mildly Decreased Stage III GFR 30-59 Moderately Decreased Stage IV GFR 15-29 Severely Decreased Stage V GFR <15 Very Little GFR Left ESRD GFR <15 on SPINDLE FRAME CARVER Lab Order: CBC WITH DIFFERENTIAL; SPEC'09/09/16 07:00 Test: WHITE BLOOD COUNT; Value: 10.9; Range: 4.0-10.0; Abnormal: Above high normal; Units: K/mm3; Status: F Test: RED BLOOD COUNT; Value: 3.44; Range: 4.00-5.40; Abnormal: Below low normal; Units: M/mm3; Status: F Test: HEMOGLOBIN; Value: 11.2; Range: 12.0-16.0; Abnormal: Below low normal; Units: g/dl; Status: F Test: HEMATOCRIT; Value: 36.6; Range: 36.0-47.0; Units: %; Status: F Test: MEAN CORPUSCULAR VOLUME; Value: 106.5; Range: 80.0-96.0; Abnormal: Above high normal; Units: fl; Status: F Test: MEAN CORPUSCULAR HEMOGLOBIN; Value: 32.7; Range: 27.0-33.0; Units: pg; Status: F Test: MEAN CORPUSCULAR HGB CONC; Value: 30.7; Range: 32.0-36.5; Abnormal: Below low normal; Units: g/dl; Status: F Test: RED CELL DISTRIBUTION WIDTH; Value: 13.9; Range: 11.5-14.5; Units: %; Status: F Test: PLATELET COUNT, AUTOMATED; Value: 111; Range: 150-450; Abnormal: Below low normal; Units: k/mm3; Status: F Test: NEUTROPHILS; Value: 77; Range: 35-75; Abnormal: Above high normal; Units: %; Status: F Test: BANDS; Value: 9; Range: < 11; Units: %; Status: F Test: LYMPHOCYTES; Value: 4; Range: 16-52; Abnormal: Below low normal; Units: %; Status: F Test: MONOCYTES; Value: 2; Range: 0-8; Units: %; Status: F Test: METAMYELOCYTES; Value: 5; Range: 0-0; Abnormal: Above high normal; Units: %; Status: F Test: ATYPICAL LYMPH; Value: 3; Range: 0-5; Units: %; Status: F Test: HYPOCHROMASIA; Value: 2+; Status: F Test: MACROCYTOSIS; Value: 2+; Status: F Test: TOXIC GRANULATION; Value: 1+; Status: F Test: DOHLE BODIES ; Value: 1+; Status: F Lab Order: LACTIC ACID LEVEL, LACTATE; SPEC'M 09/09/16 07:00 Test: LACTIC ACID LEVEL, LACTATE; Value: 1.8; Range: 0.4-2.0; Units: MMOL/L; Status: F Lab Order: PLATELET ESTIMATE; SPEC'M 09/09/16 07:00 Test: PLATELET ESTIMATE; Value: DECREASED; Range: NORMAL; Status: F Radiology Order: EKG-ADULT Test: EKG-ADULT REASON FOR EXAMINATION: Shortness of Breath; Stationary ECG Study; [facility] - ED; ; Test Date: 2016-09-09; Pat Name: SHARMILA ALEXANDER Department:; Room: [place] [address]; Gender: F Wire Welder: MARYCRUZ; : 1940 Requested By: Sandip Whitman; Order Number: [id number] Reading MD: Lucretia Burks; Measurements; Intervals [place]; Rate: 93 P: 59; WA: 158 QRS: -41; QRSD: 92 T: 114; QT: 358; QTc: 446; Interpretive Statements; SINUS RHYTHM; POSSIBLE LEFT ATRIAL ENLARGEMENT; MARKED LEFT AXIS DEVIATION; LEFT VENTRICULAR HYPERTROPHY AND ST-T CHANGE VS ISCHEMIA; ; Electronically Signed On 09-09-2016 7:28:12 EST by Lucretia Burks; Outcome: 03:11 Decision to Hospitalize by Provider. pc 08:20 No special radiology studies were completed. Admission hand-off: Report called to Emily Hampton RN. 08:32 Discharge Assessment: patient administered narcotics - yes. Patient was admitted to the [address] or transferred to another facility. The following High Risk Discharge criteria are identified: None. Admitted to ICU accompanied by nurse, accompanied by tech, family with patient, via stretcher, with oxygen, on monitor, with chart. Condition: stable. 08:55 Patient left the ED. kr3 Signatures: Dispatcher [employer] EDMS Sandip Castellanos MD MD pc Bartlett, Floyd fab Lopresti, Mary-Elizabeth, Supervisor Stage Carpentry Unit ml3 Safia Ruiz RN RN kr3 Frank Barillas, MAINTENANCE CHIEF MAINTENANCE CHIEF kb5 Starr,Lázaro bb3 Oliva Loo RN RN [facility] Britta Stern, Reg Reg hs2 Jenniffer Pelayo RN RN cf2 Corrections: (The following items were deleted from the chart) 07:35 07:23 BP 146 / 68; Pulse 100bpm; Resp 40bpm; Pulse Ox 95% CPAP; kr3 kr3 MTDD
--- NOTE | 2016-09-09 08:56 | EDDOCDS ---
Physician Documentation [facility] Name: Sharmila Rodriguez Age: 75 yrs Sex: Female : 1940 Arrival Date: 09/09/2016 Time: 01:07 Bed 3 Private MD: Maritza Disposition: 09/09 03:09 Critical Care:. pc Disposition: 09/09/16 03:11 Hospitalization ordered by Mary Logan for Inpatient Admission. Preliminary diagnosis are Acute respiratory failure, Bronchopneumonia, unspecified organism - RUL, Malignant neoplasm of lower lobe, right bronchus or lung, Sepsis, unspecified organism. - Bed requested for ICU. - Status is Inpatient Admission. kr3 - Condition is Stable. - Problem is new. - Symptoms have improved. HPI: 02:43 This 75 yrs old Female presents to ER via Ambulance with complaints of pc Respiratory Distress. 02:43 The history is obtained from EMS providers. A reliable history and/or examination was pc not able to be obtained, due to patient distress. Her spouse called EMS due to respiratory distress. She has right lung CA without active treatment. No other history is known at this time. She required CPAP en route to raise her PO from 60 to 79%. At their worst, the symptoms were severe. In the emergency department, the symptoms are severe. It is unknown whether or not the patient has recently seen a physician. Historical: - Allergies: no known allergies; - Home Meds: 1. Tylenol #3 Oral 2 tabs twice a day as needed 2. Synthroid 112 mcg Oral tab 1 tab once daily 3. ropinirole 0.25 mg oral tab 1 tab nightly 4. ondansetron HCl 8 mg Oral tab 1 tab 2 times per day as needed 5. omeprazole 20 mg Oral cpDR 1 cap once daily 6. irbesartan 150 mg oral tab 1 tab once daily 7. mirtazapine 15 mg Oral tab 1 tab nightly 8. furosemide 20 mg Oral tab 1 tab once daily 9. folic acid 1 mg Oral tab 1 tab once daily 10. escitalopram oxalate 20 mg oral tab 1 tab once daily 11. carvedilol 12.5 mg oral tab 1 tab 2 times per day 12. alprazolam 0.25 mg Oral tab 1 tab every 8 hours as needed 13. carisoprodol 350 mg Oral tab 1 tab every 6 hours as needed 14. atorvastatin 20 mg oral tab 1 tab once daily - PMHx: Acute cystitis; Depression; Hypertension; lung cancer; Thyroid irradiated; - PSHx: Infusaport insertion; open heart surgery; chemotherapy; - The history from nurses notes was reviewed: but there are no nursing notes, or only partial notes available at the time of my charting. - Social history: Smoking status: unknown if patient ever smoked tobacco. Not able to communicate due to their condition. - : The pt / caregiver states he / she is not on anticoagulants. Home medication list is obtained from pill bottles. - Exposure Risk Screening:: None identified. - Immunization history:: unknown. - Family history: Not pertinent. - Social history:: unknown. ROS: 02:43 Unable to reliably obtain pc Exam: 02:43 General Appearance: the patient is in moderate distress, lethargic. pc 02:43 Neck: The exam reveals no acute abnormalities. ROM is normal and painless. No nuchal rigidity is noted.. 02:43 Respiratory: Moderate respiratory distress noted. Respirations/effort: tachypnea, Breath sounds: rhonchi, wheezing, in the right upper lobe and right middle lobe, Decreased breath sounds, in the right posterior lower lobe. 02:43 CVS: regular rhythm, normal S1 and S2, no murmurs, strong peripheral pulses, the patient is tachycardic, at 115 bpm. 02:43 Abdomen: soft, non-tender, no organomegaly, normal bowel sounds. 02:43 Back: normal inspection. 02:43 Skin: skin color is normal, warm, dry. 02:43 Extremities: The extremities have a grossly normal appearance, no pedal edema. 02:43 Neuro: no motor deficits, no sensory deficits, unable to test orientation because BiPAP Vital Signs: 01:10 BP 154 / 68 (auto/); cf2 01:12 Pulse Ox 80% ; cf2 01:13 BP 126 / 58; Pulse 97; Resp 40; Temp 97.8(TE); Pulse Ox 91% on BiPAP; Weight 51.26 kg / mlc 113.01 lbs; 01:13 Pulse Ox 77% ; cf2 01:14 Pulse 100 MON; Pulse Ox 78% ; cf2 01:14 Temp 97.5; cf2 01:15 BP 126 / 58 (auto/); cf2 01:16 Pulse 98 MON; Pulse Ox 89% ; cf2 01:30 BP 92 / 58 (auto/); cf2 01:31 Pulse 93 MON; Pulse Ox 91% ; cf2 01:45 BP 106 / 59 (auto/); cf2 01:46 Pulse 84 MON; Pulse Ox 98% ; cf2 01:47 Pulse 85 MON; Pulse Ox 98% ; cf2 02:00 BP 101 / 58 (auto/); cf2 02:01 Pulse 87 MON; Pulse Ox 98% ; cf2 02:15 Pulse 85 MON; Pulse Ox 97% ; cf2 02:15 BP 116 / 60 (auto/); cf2 02:30 BP 116 / 57 (auto/); cf2 02:31 Pulse 87 MON; Pulse Ox 98% ; cf2 02:45 BP 117 / 58 (auto/); cf2 02:46 Pulse 84 MON; Pulse Ox 96% ; cf2 03:00 BP 110 / 50 (auto/); cf2 03:01 Pulse 81 MON; Pulse Ox 97% ; cf2 03:03 Pulse 80 MON; Pulse Ox 100% ; cf2 03:08 Pulse 77 MON; Pulse Ox 85% ; cf2 03:15 BP 107 / 54 (auto/); cf2 03:17 Pulse 79 MON; Pulse Ox 91% ; cf2 03:23 Pulse 79 MON; Pulse Ox 96% ; cf2 03:26 Pulse 79 MON; Pulse Ox 97% ; cf2 03:30 Pulse 79 MON; Pulse Ox 97% ; cf2 03:33 Pulse 79 MON; Pulse Ox 97% ; cf2 03:36 Pulse 79 MON; Pulse Ox 97% ; cf2 03:39 Pulse 78 MON; Pulse Ox 97% ; cf2 03:43 Pulse 78 MON; Pulse Ox 97% ; cf2 03:47 Pulse 78 MON; Pulse Ox 97% ; cf2 03:52 Pulse 78 MON; Pulse Ox 97% ; cf2 04:13 Pulse 80 MON; Pulse Ox 97% ; cf2 04:16 Pulse 79 MON; Pulse Ox 98% ; cf2 04:20 Pulse 81 MON; Pulse Ox 97% ; cf2 04:22 Pulse 81 MON; Pulse Ox 98% ; cf2 04:26 Pulse 82 MON; Pulse Ox 97% ; cf2 04:32 Pulse 86 MON; Pulse Ox 98% ; cf2 04:35 Pulse 83 MON; Pulse Ox 97% ; cf2 04:36 BP 101 / 54 (auto/); cf2 04:37 Pulse 81 MON; Pulse Ox 97% ; cf2 04:41 Pulse 82 MON; Pulse Ox 97% ; cf2 04:44 Pulse 82 MON; Pulse Ox 97% ; cf2 04:46 Pulse 82 MON; Pulse Ox 98% ; cf2 05:31 Pulse 88 MON; Pulse Ox 93% ; cf2 05:31 BP 131 / 75; cf2 05:36 Pulse 95 MON; Pulse Ox 90% ; cf2 05:40 Pulse 95 MON; Pulse Ox 92% ; cf2 05:46 Pulse 90 MON; Pulse Ox 94% ; cf2 05:53 Pulse 90 MON; Pulse Ox 91% ; cf2 05:58 Pulse 92 MON; Pulse Ox 89% ; cf2 06:04 Pulse 99 MON; Pulse Ox 88% ; cf2 06:11 Pulse 96 MON; Pulse Ox 92% ; cf2 06:16 Pulse 96 MON; Pulse Ox 93% ; cf2 06:23 Pulse 97 MON; Pulse Ox 92% ; cf2 06:27 Pulse 100 MON; Pulse Ox 92% ; cf2 06:31 Pulse 101 MON; Pulse Ox 94% ; cf2 06:36 Pulse 102 MON; Pulse Ox 90% ; cf2 07:23 BP 146 / 68; Pulse 100; Resp 40; Pulse Ox 95% on BiPAP; kr3 07:52 BP 152 / 68; Pulse 100; Resp 42; Temp 99.9(T); Pulse Ox 96% on 60% BiPAP; kr3 MDM: 01:19 Call Respiratory ordered. bb3 01:19 Call Respiratory complete. bb3 01:20 Call Respiratory ordered. bb3 01:20 Call Respiratory complete. bb3 01:21 -Arterial Blood Gas Ordered. EDMS 01:22 -Blood Culture (Adults Only), peripheral from different site, or from device/port/PICC pc etc. if present ordered. 01:22 Director Of Vocational Guidance/Pulse Ox/q 15 min VS ordered. pc 01:22 IV Saline Lock ordered. pc 01:22 Rhythm Strip to chart ordered. pc 01:23 -Blood Culture Ordered. EDMS 01:23 Basic Metabolic Profile Ordered. EDMS 01:23 CBC with Diff Ordered. EDMS 01:24 Chest, 1 View Ordered. EDMS 01:24 ECG WITH READING ER PHYS+CARDIAG ordered. EDMS 01:42 -Blood Culture (Adults Only), peripheral from different site, or from device/port/PICC cf2 etc. if present complete. 01:55 DIFFERENTIAL NO CHARGE Ordered. EDMS 01:55 PLATELET ESTIMATE Ordered. EDMS 02:00 -Arterial Blood Gas Reviewed. pc 02:00 CBC with Diff Reviewed. pc 02:03 heparin 100units/mL flush (infusaport) 5 ml IVP once; flush first with 10mL of NS pc followed by heparin ordered. 02:03 Access Infusaport ordered. pc 02:04 Intake and Output Hourly ordered. pc 02:04 [place] ordered. pc 02:05 Type & Screen Ordered. EDMS 02:05 Lactic Acid (Bernal tube on ice) Ordered. EDMS 02:05 PT/INR Ordered. EDMS 02:05 PTT Ordered. EDMS 02:05 Urinalysis Ordered. EDMS 02:06 Urine Culture Ordered. EDMS 02:16 AMYLASE Ordered. EDMS 02:16 C REACTIVE PROTEIN QUANTITATIV Ordered. EDMS 02:16 LIVER PROFILE Ordered. EDMS 02:33 CBC with Diff Reviewed. pc 02:33 PT/INR Reviewed. pc 02:33 PTT Reviewed. pc 02:33 PLATELET ESTIMATE Reviewed. pc 02:33 Lactic Acid (Bernal tube on ice) Reviewed. pc 02:37 Redraw ABG (put time in details section) ordered. pc 02:37 Cefepime 2 grams IVPB at 100 mL/hr once over 30 mins; dilute in 50mL of NS or D5W pc ordered. 02:39 Redraw ABG (put time in details section) complete. ml3 02:40 ARTERIAL BLOOD GAS Ordered. EDMS 02:42 BED REQUEST+ADM ordered. EDMS 02:43 Differential Diagnosis: Respiratory failure, known lung CA, DNR/DNI per MOLST. Plan: pc labs, EKG, imaging, meds. Data reviewed: old medical records, vital signs, nurses notes, EKG(s), lab test results, all radiology studies and available results. Test interpretation: EKG. 02:43 Test interpretation: Arterial blood gas is normal except. pH: 7.29 pO2: 60 X-RAY - pc interpreted by me, 1 view chest RUL infiltrate, right pleural effusion, RLL mass. The patient has been re-examined and re-evaluated. The patient's symptoms have markedly improved after treatment, with her POP 97% on BiPAP and she is alert and conversant. 02:51 Basic Metabolic Profile Reviewed. pc 02:51 C REACTIVE PROTEIN QUANTITATIV Reviewed. pc 02:51 LIVER PROFILE Reviewed. pc 02:51 AMYLASE Reviewed. pc 03:08 Financial registration complete. hs2 03:09 Physician consultation: Dr. Mary Logan was contacted at 03:09, regarding pc admission. Disposition: The historical points, examination findings, and any diagnostic results supporting the provided diagnosis, were discussed with the patient or legal guardian. The need for further work-up and/or treatment in the hospital was explained. 03:30 [facility] Payment Agreement was scanned into [employer] and attached to record. hs2 04:53 Admission / Observation Status ordered. EDMS 05:18 2 GRAM SODIUM DIET ordered. EDMS 05:19 BASIC METABOLIC PROFILE Ordered. EDMS 05:19 CBC WITH DIFFERENTIAL Ordered. EDMS 05:19 LACTIC ACID LEVEL, LACTATE Ordered. EDMS 05:20 SPUTUM CULTURE AND GRAM STAIN Ordered. EDMS 05:56 BIPAP INPATIENT ordered. EDMS 06:08 MRSA SCREEN Ordered. EDMS 06:58 Acetaminophen-Codeine 300 mg-30 mg 2 tabs PO once ordered. cf2 07:18 DIFFERENTIAL NO CHARGE Ordered. EDMS 07:18 PLATELET ESTIMATE Ordered. EDMS 07:19 NS 0.9% 1000 ml IV at 75 mL/hr continuous ordered. kr3 08:32 ALPRAZolam Tablet 0.5 mg PO once ordered. kr3 EC:43 Rate is 93 beats/min. Rhythm is regular, Normal Sinus Rhythm. Left axis deviation pc noted. QRS is negative in leads II, aVF. MI interval is normal. QRS interval is normal. QT interval is normal. No Q waves. T waves are Inverted in leads I, aVL, V2, V3. ST Segment is depressed in leads V3, V4, V5, V6, <1mm. ST Segment is depressed in leads I, aVL. Clinical impression: Normal Sinus Rhythm, LVH with strain pattern, and LAE, LAD. Administered Medications: 02:00 Drug: heparin 100units/mL flush (infusaport) 5 ml [heparin, porcine (PF) 10 unit/mL cf2 intravenous syringe (5 mL)] Route: IVP; Site: left antecubital; 02:55 Drug: Cefepime 2 grams [cefepime 2 gram solution for injection] Route: IVPB; Rate: 100 cf2 mL/hr; Infused Over: 30 mins; Site: left antecubital; 06:58 Drug: Acetaminophen-Codeine 2 tabs [acetaminophen 300 mg-codeine 30 mg tablet (2 tabs)] cf2 Route: PO; 07:24 Follow up: Response: Pain is decreased kr3 07:19 Drug: NS 0.9% 1000 ml [sodium chloride 0.9 % intravenous solution] Route: IV; Rate: 75 kr3 mL/hr; Site: Implantable Access Device; 07:35 Follow up: IV Status: Infusion continued upon admit kr3 08:32 Drug: ALPRAZolam 0.5 mg [alprazolam 0.25 mg tablet (2 tabs)] Route: PO; kr3 Critical Care Time: 03:09 Critical care time: Bedside Care: 45 minutes, Consultation: 10 minutes, Family pc Intervention: 15 minutes. Total time: 70 minutes Signatures: Dispatcher [employer] Sandip Garcia MD MD pc Christelle Fung, Soldering Inspector Unit ml3 Safia RuizRN RN kr3 Lázaro Clements 3 Oliva Loo RN RN [facility] Britta Stern, Reg Reg hs2 Jenniffer Pelayo RN RN cf2 The chart was reviewed and I authenticate all verbal orders and agree with the evaluation and treatment provided.Corrections: (The following items were deleted from the chart) 02:16 02:05 AMYLASE+LAB ordered. EDMS EDMS 02:16 02:05 C REACTIVE PROTEIN QUANTITATIV+LAB ordered. EDMS EDMS 02:16 02:05 LIVER PROFILE+LAB ordered. EDMS EDMS Attachments: 03:30 [facility] Payment Agreement hs2 MTDD
[2016-09-09] MEDS ORDERED: ENOXAPARIN 30 MG/0.3 ML SYR (J1650) SC SCH (09:00)
[2016-09-09] MEDS ORDERED: ESCITALOPRAM OXALATE 10 MG TAB (LEXAPRO) PO SCH (09:00)
[2016-09-09] MEDS ORDERED: amLODIPine 5 MG TAB PO SCH (09:00)
[2016-09-09] MEDS ORDERED: CYANOCOBALAMIN 500 MCG TAB PO SCH (09:00)
[2016-09-09] MEDS ORDERED: CARVedilol 12.5 MG TAB PO SCH (09:00)
[2016-09-09] MEDS ORDERED: OMEPRAZOLE 20 MG CAP PO SCH (09:00)
[2016-09-09] MEDS ORDERED: MULTIVITAMINS/MINERALS THERAP 1 TAB PO SCH (09:00)
[2016-09-09] MEDS ORDERED: ASPIRIN 81 MG ENTERIC TAB PO SCH (09:00)
[2016-09-09] MEDS ORDERED: PIPERACILLIN/TAZOBACTAM SOD 2.25 GM in D5W MINI-BAG PLUS 50 ML IV SCH (09:00)
[2016-09-09] MEDS ORDERED: SCOPOLAMINE 1.5 MG TRANSDERMAL TOP SCH (09:00)
[2016-09-09] MEDS ORDERED: SPIRONOLACTONE 25 MG TAB PO SCH (09:00)
--- NOTE | 2016-09-09 09:02 | REP ---
Portable chest x-ray: Sitting AP view. History: Short of breath. Comparison chest x-ray 07/07/2016. Comparison chest CT study is from 09/01/2016. Findings: There is an Selxvr-J-Lofe catheter on the right side via the subclavian vein with its tip in the expected location of the superior vena cava. There is a large dense infiltrate in the right upper lobe distribution which is a new finding compared with CT study from 09/01/2016 and is compatible with pneumonia. There is a small amount of right pleural fluid blunting the right lateral pleural angle. This is essentially unchanged from the CT. The left lung shows no evidence of infiltrate. Moderate cardiomegaly is observed. CT shows a mass density in the posteromedial aspect of the right lower lobe which overlies the right heart radiographically and produces increased density but is otherwise difficult to see. There is fullness in the main pulmonary artery window region of the left mediastinal contour compatible with a dilated pulmonary arterial tree and pulmonary hypertension. This finding is unchanged from 07/07/2016. Impression: New large right upper lobe infiltrate consistent with pneumonia. Signed by Bob Whitaker MD 09/09/2016 09:24 A
[2016-09-09] MEDS ORDERED: MORPHINE 2 MG/ML 1ML SYRINGE IV ONE (09:30)
[2016-09-09] MEDS ORDERED: MORPHINE 2 MG/ML 1ML SYRINGE As Ordered ONE (09:31)
[2016-09-09] MEDS ORDERED: MORPHINE SULFATE CADD 100 MG in APPROPRIATE DILUENT 1 EA IV SCH (09:51)
[2016-09-09] MEDS ORDERED: LORazepam 1 MG TAB PO PRN (10:00)
[2016-09-09] MEDS ORDERED: EPIDURAL/PCA KEYS XX PRN (10:00)
[2016-09-09] MEDS ORDERED: VANCOMYCIN HCL 500 MG in D5W MINI-BAG PLUS 100 ML IV SCH (10:00)
[2016-09-09] MEDS: LORazepam 2 MG/ML VIAL (J2060) IV PRN (13:19)
--- NOTE | 2016-09-09 14:56 | IPNPDOC ---
Text Note Date of Service The patient was seen on 09/09/16 at 14:52. NOTE Called by nurse to evaluate patient at 9:30 AM. Upon arrival to bedside, patient was noted to be in acute hypoxic respiratory failure, on nonrebreather sat 92%, tachypenic in the 40s-50s. She had failed BiPAP although she was not hypercapnic on presentation. The patient has severe sepsis from pneumonia with underlying lung cancer, and acute respiratory distress using accessory muscles, as well as difficulty clearing her secretions. Given her acute and progressive decline, the patient and the at bedside have decided to make the patient comfort measures. Orders have been placed and the MOLST has been updated. VS,Fishbone, I+O VS, Fishbone, I+O Laboratory Tests 09/09/16 01:30 Red Blood Count 3.38 L, Mean Corpuscular Volume 103.5 H, Mean Corpuscular Hemoglobin 33.0, Mean Corpuscular Hemoglobin Concent 31.8 L, Red Cell Distribution Width 14.1, Neutrophils (%) (Auto) , Lymphocytes (%) (Auto) , Monocytes (%) (Auto) , Eosinophils (%) (Auto) , Basophils (%) (Auto) , Neutrophils # (Auto) , Lymphocytes # (Auto) , Monocytes # (Auto) , Eosinophils # (Auto) , Basophils # (Auto) 09/09/16 07:00 Red Blood Count 3.44 L, Mean Corpuscular Volume 106.5 H, Mean Corpuscular Hemoglobin 32.7, Mean Corpuscular Hemoglobin Concent 30.7 L, Red Cell Distribution Width 13.9, Neutrophils (%) (Auto) , Lymphocytes (%) (Auto) , Monocytes (%) (Auto) , Eosinophils (%) (Auto) , Basophils (%) (Auto) , Neutrophils # (Auto) , Lymphocytes # (Auto) , Monocytes # (Auto) , Eosinophils # (Auto) , Basophils # (Auto) , Calcium Level 8.8 Vital Signs Date Time Temp Pulse Resp B/P Pulse Ox O2 Delivery O2 Flow Rate FiO2 09/09/16 09:30 42 09/09/16 07:59 99.9 100 152/68 96 NIPPV (BIPAP/CPAP) 60 DEEPTI MALIK MD Sep 09, 2016 14:56
[2016-09-09] MEDS ORDERED: ATORVASTATIN 20 MG TAB PO SCH (21:00)
[2016-09-09] MEDS ORDERED: rOPINIRole 0.25 MG TAB(REQUIP) PO SCH (21:00)
[2016-09-09] MEDS ORDERED: MIRTAZAPINE 15 MG TAB PO SCH (21:00)
[2016-09-10] MEDS: MORPHINE 2 MG/ML 1ML SYRINGE IV PRN ×3 (11:18→14:36)
[2016-09-10] MEDS: LORazepam 2 MG/ML VIAL (J2060) IV PRN (11:25)
--- NOTE | 2016-09-10 18:45 | DS.PDOC ---
Discharge Summary General Date of Admission Sep 09, 2016 at 04:50 Date of Discharge Sep 10, 2016 at 14:55 Attending Physician: DEEPTI MALIK MD Specialist/Consultants Involve: Antonette ROA MD Discharge Summary PROCEDURES PERFORMED DURING STAY: None. COMPLICATIONS/CHIEF COMPLAINT: Sepsis Due To Pneumonia ADMISSION/DISCHARGE DIAGNOSES: 1. Severe sepsis secondary to pneumonia 2. Acute hypoxic respiratory failure with the use of accessory muscles 3. Acute renal failure 4. Stage IV adenocarcinoma of the lung 5. Anxiety and depression 6. CAD status post CABG 7. Diastolic heart failure 8. Hypertension 9. History of malignant pleural effusion status post pleurodesis 10. Hypothyroidism Patient was admitted to [facility] with acute hypoxic respiratory failure secondary to underlying pneumonia. Patient was started on broad- spectrum antibiotics and was placed on BiPAP, however patient failed to respond appropriately. Patient was found to be in severe sepsis secondary to pneumonia. She was in significant respiratory distress with the use of accessory muscles while on a nonrebreather. 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 The patient on 09/10/16. Vital Signs/I&Os Vital Signs Date Time Temp Pulse Resp B/P Pulse Ox O2 Delivery O2 Flow Rate FiO2 09/10/16 13:42 26 Nasal Cannula 2.0 09/09/16 07:59 99.9 100 152/68 96 60 I&O- Last 24 Hours up to 6 AM 09/10/16 06:00 Intake Total 0 ml Output Total 175 ml Balance -175 ml Microbiology Microbiology 09/09/16 Blood Culture - Preliminary, Resulted No growth after 24 hours . All specim... 09/09/16 MRSA Screen - Final, Complete 09/09/16 Urine Culture, Received Pending Medications Scheduled Amlodipine Besylate (Amlodipine Besylate) 5 Mg Tab 5 MG PO DAILY Aspirin (Aspirin EC) 81 Mg Tabec 81 MG PO DAILY Atorvastatin Calcium (Atorvastatin Calcium) 20 Mg Tab 20 MG PO QHS Carvedilol (Carvedilol) 12.5 Mg Tab 12.5 MG PO BID Cyanocobalamin (Vitamin B12) 500 Mcg Tab 1,000 MCG PO DAILY takes at dinnertime Escitalopram Oxalate (Escitalopram Oxalate) 20 Mg Tab 20 MG PO DAILY Furosemide (Furosemide) 20 Mg Tab 20 MG PO DAILY Irbesartan (Irbesartan) 300 Mg Tab 300 MG PO DAILY Levothyroxine Sodium (Levoxyl) 112 Mcg Tab 112 MCG PO DAILY Mirtazapine (Mirtazapine) 30 Mg Tab 30 MG PO QHS Multivitamins *[facility] STOCKED* (Thera M Plus *[facility] STOCK[facility]*) 1 Tab Tab 1 TAB PO DAILY Omeprazole (Omeprazole) 20 Mg Cap 20 MG PO DAILY Ropinirole Hydrochloride (Ropinirole HCl) 0.25 Mg Tab 0.5 MG PO QHS Spironolactone (Spironolactone) 25 Mg Tab 25 MG PO DAILY Scheduled PRN Acetaminophen/Codeine (Tylenol/Codeine #3 300-30 mg) 1 Tab Tab 2 TAB PO BID PRN PRN PAIN Alprazolam (Alprazolam) 0.5 Mg Tab 0.5 MG PO Q8H PRN PRN ANXIETY Carisoprodol (Carisoprodol) 350 Mg Tab 350 MG PO Q6H PRN PRN MUSCLE SPASMS Ipratropium Bivalve (Ipratropium Bivalve) 165 Glenvil/15 Ml Naspr 1 SPRAY NA Q6H PRN PRN POST NASAL DRIP Ondansetron HCl (Ondansetron HCl) 8 Mg Tab 8 MG PO BID PRN PRN NAUSEA Prochlorperazine Maleate (Prochlorperazine Maleate) 10 Mg Tab 10 MG PO Q6H PRN PRN NAUSEA Ropinirole Hydrochloride (Ropinirole HCl) 0.25 Mg Tab 0.5 MG PO QHS PRN PRN RESTLESS LEG SYNDROME SCRIPT IS FOR 1-4: PATIENT'S STATES THAT SHE TAKES TWO AND IF HER LEGS ARE STILL BOTHERING HER, SHE TAKES THE OTHER 2. Allergies Coded Allergies: No Known Allergies (Unverified , 11/04/12) DEEPTI MALIK MD Sep 10, 2016 18:45
--- NOTE | 2016-09-11 09:56 | EDDOCDS ---
Physician Documentation [facility] Name: Sharmila Rodriguez Age: 75 yrs Sex: Female : 1940 Arrival Date: 09/09/2016 Time: 01:07 Bed 3 Private MD: Maritza Disposition: 09/09 03:09 Critical Care:. pc Disposition: 09/09/16 03:11 Hospitalization ordered by Mary Logan for Inpatient Admission. Preliminary diagnosis are Acute respiratory failure, Bronchopneumonia, unspecified organism - RUL, Malignant neoplasm of lower lobe, right bronchus or lung, Sepsis, unspecified organism. - Bed requested for ICU. - Status is Inpatient Admission. kr3 - Condition is Stable. - Problem is new. - Symptoms have improved. HPI: 02:43 This 75 yrs old Female presents to ER via Ambulance with complaints of pc Respiratory Distress. 02:43 The history is obtained from EMS providers. A reliable history and/or examination was pc not able to be obtained, due to patient distress. Her spouse called EMS due to respiratory distress. She has right lung CA without active treatment. No other history is known at this time. She required CPAP en route to raise her PO from 60 to 79%. At their worst, the symptoms were severe. In the emergency department, the symptoms are severe. It is unknown whether or not the patient has recently seen a physician. Historical: - Allergies: no known allergies; - Home Meds: 1. Tylenol #3 Oral 2 tabs twice a day as needed 2. Synthroid 112 mcg Oral tab 1 tab once daily 3. ropinirole 0.25 mg oral tab 1 tab nightly 4. ondansetron HCl 8 mg Oral tab 1 tab 2 times per day as needed 5. omeprazole 20 mg Oral cpDR 1 cap once daily 6. irbesartan 150 mg oral tab 1 tab once daily 7. mirtazapine 15 mg Oral tab 1 tab nightly 8. furosemide 20 mg Oral tab 1 tab once daily 9. folic acid 1 mg Oral tab 1 tab once daily 10. escitalopram oxalate 20 mg oral tab 1 tab once daily 11. carvedilol 12.5 mg oral tab 1 tab 2 times per day 12. alprazolam 0.25 mg Oral tab 1 tab every 8 hours as needed 13. carisoprodol 350 mg Oral tab 1 tab every 6 hours as needed 14. atorvastatin 20 mg oral tab 1 tab once daily - PMHx: Acute cystitis; Depression; Hypertension; lung cancer; Thyroid irradiated; - PSHx: Infusaport insertion; open heart surgery; chemotherapy; - The history from nurses notes was reviewed: but there are no nursing notes, or only partial notes available at the time of my charting. - Social history: Smoking status: unknown if patient ever smoked tobacco. Not able to communicate due to their condition. - : The pt / caregiver states he / she is not on anticoagulants. Home medication list is obtained from pill bottles. - Exposure Risk Screening:: None identified. - Immunization history:: unknown. - Family history: Not pertinent. - Social history:: unknown. ROS: 02:43 Unable to reliably obtain pc Exam: 02:43 General Appearance: the patient is in moderate distress, lethargic. pc 02:43 Neck: The exam reveals no acute abnormalities. ROM is normal and painless. No nuchal rigidity is noted.. 02:43 Respiratory: Moderate respiratory distress noted. Respirations/effort: tachypnea, Breath sounds: rhonchi, wheezing, in the right upper lobe and right middle lobe, Decreased breath sounds, in the right posterior lower lobe. 02:43 CVS: regular rhythm, normal S1 and S2, no murmurs, strong peripheral pulses, the patient is tachycardic, at 115 bpm. 02:43 Abdomen: soft, non-tender, no organomegaly, normal bowel sounds. 02:43 Back: normal inspection. 02:43 Skin: skin color is normal, warm, dry. 02:43 Extremities: The extremities have a grossly normal appearance, no pedal edema. 02:43 Neuro: no motor deficits, no sensory deficits, unable to test orientation because BiPAP Vital Signs: 01:10 BP 154 / 68 (auto/); cf2 01:12 Pulse Ox 80% ; cf2 01:13 BP 126 / 58; Pulse 97; Resp 40; Temp 97.8(TE); Pulse Ox 91% on BiPAP; Weight 51.26 kg / mlc 113.01 lbs; 01:13 Pulse Ox 77% ; cf2 01:14 Pulse 100 MON; Pulse Ox 78% ; cf2 01:14 Temp 97.5; cf2 01:15 BP 126 / 58 (auto/); cf2 01:16 Pulse 98 MON; Pulse Ox 89% ; cf2 01:30 BP 92 / 58 (auto/); cf2 01:31 Pulse 93 MON; Pulse Ox 91% ; cf2 01:45 BP 106 / 59 (auto/); cf2 01:46 Pulse 84 MON; Pulse Ox 98% ; cf2 01:47 Pulse 85 MON; Pulse Ox 98% ; cf2 02:00 BP 101 / 58 (auto/); cf2 02:01 Pulse 87 MON; Pulse Ox 98% ; cf2 02:15 Pulse 85 MON; Pulse Ox 97% ; cf2 02:15 BP 116 / 60 (auto/); cf2 02:30 BP 116 / 57 (auto/); cf2 02:31 Pulse 87 MON; Pulse Ox 98% ; cf2 02:45 BP 117 / 58 (auto/); cf2 02:46 Pulse 84 MON; Pulse Ox 96% ; cf2 03:00 BP 110 / 50 (auto/); cf2 03:01 Pulse 81 MON; Pulse Ox 97% ; cf2 03:03 Pulse 80 MON; Pulse Ox 100% ; cf2 03:08 Pulse 77 MON; Pulse Ox 85% ; cf2 03:15 BP 107 / 54 (auto/); cf2 03:17 Pulse 79 MON; Pulse Ox 91% ; cf2 03:23 Pulse 79 MON; Pulse Ox 96% ; cf2 03:26 Pulse 79 MON; Pulse Ox 97% ; cf2 03:30 Pulse 79 MON; Pulse Ox 97% ; cf2 03:33 Pulse 79 MON; Pulse Ox 97% ; cf2 03:36 Pulse 79 MON; Pulse Ox 97% ; cf2 03:39 Pulse 78 MON; Pulse Ox 97% ; cf2 03:43 Pulse 78 MON; Pulse Ox 97% ; cf2 03:47 Pulse 78 MON; Pulse Ox 97% ; cf2 03:52 Pulse 78 MON; Pulse Ox 97% ; cf2 04:13 Pulse 80 MON; Pulse Ox 97% ; cf2 04:16 Pulse 79 MON; Pulse Ox 98% ; cf2 04:20 Pulse 81 MON; Pulse Ox 97% ; cf2 04:22 Pulse 81 MON; Pulse Ox 98% ; cf2 04:26 Pulse 82 MON; Pulse Ox 97% ; cf2 04:32 Pulse 86 MON; Pulse Ox 98% ; cf2 04:35 Pulse 83 MON; Pulse Ox 97% ; cf2 04:36 BP 101 / 54 (auto/); cf2 04:37 Pulse 81 MON; Pulse Ox 97% ; cf2 04:41 Pulse 82 MON; Pulse Ox 97% ; cf2 04:44 Pulse 82 MON; Pulse Ox 97% ; cf2 04:46 Pulse 82 MON; Pulse Ox 98% ; cf2 05:31 Pulse 88 MON; Pulse Ox 93% ; cf2 05:31 BP 131 / 75; cf2 05:36 Pulse 95 MON; Pulse Ox 90% ; cf2 05:40 Pulse 95 MON; Pulse Ox 92% ; cf2 05:46 Pulse 90 MON; Pulse Ox 94% ; cf2 05:53 Pulse 90 MON; Pulse Ox 91% ; cf2 05:58 Pulse 92 MON; Pulse Ox 89% ; cf2 06:04 Pulse 99 MON; Pulse Ox 88% ; cf2 06:11 Pulse 96 MON; Pulse Ox 92% ; cf2 06:16 Pulse 96 MON; Pulse Ox 93% ; cf2 06:23 Pulse 97 MON; Pulse Ox 92% ; cf2 06:27 Pulse 100 MON; Pulse Ox 92% ; cf2 06:31 Pulse 101 MON; Pulse Ox 94% ; cf2 06:36 Pulse 102 MON; Pulse Ox 90% ; cf2 07:23 BP 146 / 68; Pulse 100; Resp 40; Pulse Ox 95% on BiPAP; kr3 07:52 BP 152 / 68; Pulse 100; Resp 42; Temp 99.9(T); Pulse Ox 96% on 60% BiPAP; kr3 MDM: 01:19 Call Respiratory ordered. bb3 01:19 Call Respiratory complete. bb3 01:20 Call Respiratory ordered. bb3 01:20 Call Respiratory complete. bb3 01:21 -Arterial Blood Gas Ordered. EDMS 01:22 -Blood Culture (Adults Only), peripheral from different site, or from device/port/PICC pc etc. if present ordered. 01:22 Leather Heel Breaster/Pulse Ox/q 15 min VS ordered. pc 01:22 IV Saline Lock ordered. pc 01:22 Rhythm Strip to chart ordered. pc 01:23 -Blood Culture Ordered. EDMS 01:23 Basic Metabolic Profile Ordered. EDMS 01:23 CBC with Diff Ordered. EDMS 01:24 Chest, 1 View Ordered. EDMS 01:24 ECG WITH READING ER PHYS+CARDIAG ordered. EDMS 01:42 -Blood Culture (Adults Only), peripheral from different site, or from device/port/PICC cf2 etc. if present complete. 01:55 DIFFERENTIAL NO CHARGE Ordered. EDMS 01:55 PLATELET ESTIMATE Ordered. EDMS 02:00 -Arterial Blood Gas Reviewed. pc 02:00 CBC with Diff Reviewed. pc 02:03 heparin 100units/mL flush (infusaport) 5 ml IVP once; flush first with 10mL of NS pc followed by heparin ordered. 02:03 Access Infusaport ordered. pc 02:04 Intake and Output Hourly ordered. pc 02:04 [place] ordered. pc 02:05 Type & Screen Ordered. EDMS 02:05 Lactic Acid (Bernal tube on ice) Ordered. EDMS 02:05 PT/INR Ordered. EDMS 02:05 PTT Ordered. EDMS 02:05 Urinalysis Ordered. EDMS 02:06 Urine Culture Ordered. EDMS 02:16 AMYLASE Ordered. EDMS 02:16 C REACTIVE PROTEIN QUANTITATIV Ordered. EDMS 02:16 LIVER PROFILE Ordered. EDMS 02:33 CBC with Diff Reviewed. pc 02:33 PT/INR Reviewed. pc 02:33 PTT Reviewed. pc 02:33 PLATELET ESTIMATE Reviewed. pc 02:33 Lactic Acid (Bernal tube on ice) Reviewed. pc 02:37 Redraw ABG (put time in details section) ordered. pc 02:37 Cefepime 2 grams IVPB at 100 mL/hr once over 30 mins; dilute in 50mL of NS or D5W pc ordered. 02:39 Redraw ABG (put time in details section) complete. ml3 02:40 ARTERIAL BLOOD GAS Ordered. EDMS 02:42 BED REQUEST+ADM ordered. EDMS 02:43 Differential Diagnosis: Respiratory failure, known lung CA, DNR/DNI per [facility]. Plan: pc labs, EKG, imaging, meds. Data reviewed: old medical records, vital signs, nurses notes, EKG(s), lab test results, all radiology studies and available results. Test interpretation: EKG. 02:43 Test interpretation: Arterial blood gas is normal except. pH: 7.29 pO2: 60 X-RAY - pc interpreted by me, 1 view chest RUL infiltrate, right pleural effusion, RLL mass. The patient has been re-examined and re-evaluated. The patient's symptoms have markedly improved after treatment, with her POP 97% on BiPAP and she is alert and conversant. 02:51 Basic Metabolic Profile Reviewed. pc 02:51 C REACTIVE PROTEIN QUANTITATIV Reviewed. pc 02:51 LIVER PROFILE Reviewed. pc 02:51 AMYLASE Reviewed. pc 03:08 Financial registration complete. hs2 03:09 Physician consultation: Dr. Mary Logan was contacted at 03:09, regarding pc admission. Disposition: The historical points, examination findings, and any diagnostic results supporting the provided diagnosis, were discussed with the patient or legal guardian. The need for further work-up and/or treatment in the hospital was explained. 03:30 [facility] Payment Agreement was scanned into [employer] and attached to record. hs2 04:53 Admission / Observation Status ordered. EDMS 05:18 2 GRAM SODIUM DIET ordered. EDMS 05:19 BASIC METABOLIC PROFILE Ordered. EDMS 05:19 CBC WITH DIFFERENTIAL Ordered. EDMS 05:19 LACTIC ACID LEVEL, LACTATE Ordered. EDMS 05:20 SPUTUM CULTURE AND GRAM STAIN Ordered. EDMS 05:56 BIPAP INPATIENT ordered. EDMS 06:08 MRSA SCREEN Ordered. EDMS 06:58 Acetaminophen-Codeine 300 mg-30 mg 2 tabs PO once ordered. cf2 07:18 DIFFERENTIAL NO CHARGE Ordered. EDMS 07:18 PLATELET ESTIMATE Ordered. EDMS 07:19 NS 0.9% 1000 ml IV at 75 mL/hr continuous ordered. kr3 08:32 ALPRAZolam Tablet 0.5 mg PO once ordered. kr3 14:31 ECG/EKG was scanned into [employer] and attached to record. EC:43 Rate is 93 beats/min. Rhythm is regular, Normal Sinus Rhythm. Left axis deviation pc noted. QRS is negative in leads II, aVF. TN interval is normal. QRS interval is normal. QT interval is normal. No Q waves. T waves are Inverted in leads I, aVL, V2, V3. ST Segment is depressed in leads V3, V4, V5, V6, <1mm. ST Segment is depressed in leads I, aVL. Clinical impression: Normal Sinus Rhythm, LVH with strain pattern, and LAE, LAD. Administered Medications: 02:00 Drug: heparin 100units/mL flush (infusaport) 5 ml [heparin, porcine (PF) 10 unit/mL cf2 intravenous syringe (5 mL)] Route: IVP; Site: left antecubital; 02:55 Drug: Cefepime 2 grams [cefepime 2 gram solution for injection] Route: IVPB; Rate: 100 cf2 mL/hr; Infused Over: 30 mins; Site: left antecubital; 06:58 Drug: Acetaminophen-Codeine 2 tabs [acetaminophen 300 mg-codeine 30 mg tablet (2 tabs)] cf2 Route: PO; 07:24 Follow up: Response: Pain is decreased kr3 07:19 Drug: NS 0.9% 1000 ml [sodium chloride 0.9 % intravenous solution] Route: IV; Rate: 75 kr3 mL/hr; Site: Implantable Access Device; 07:35 Follow up: IV Status: Infusion continued upon admit kr3 08:32 Drug: ALPRAZolam 0.5 mg [alprazolam 0.25 mg tablet (2 tabs)] Route: PO; kr3 Critical Care Time: 03:09 Critical care time: Bedside Care: 45 minutes, Consultation: 10 minutes, Family pc Intervention: 15 minutes. Total time: 70 minutes Signatures: Dispatcher [employer] EDSandip Croft MD MD pc Barnhardt, Gloria, Reg Reg gb Christelle Fung, Dust Collector Operator Unit ml3 Safia Ruiz RN RN kr3 Lázaro Clements bb3 Oliva Loo RN RN [facility] Britta Stern, Reg Reg hs2 Jenniffer Pelayo RN RN cf2 The chart was reviewed and I authenticate all verbal orders and agree with the evaluation and treatment provided.Corrections: (The following items were deleted from the chart) 02:16 02:05 AMYLASE+LAB ordered. EDMS EDMS 02:16 02:05 C REACTIVE PROTEIN QUANTITATIV+LAB ordered. EDMS EDMS 02:16 02:05 LIVER PROFILE+LAB ordered. EDMS EDMS Attachments: 03:30 [facility] Payment Agreement hs2 14:31 ECG/EKG gb Chart Complete MTDD
--- NOTE | 2016-09-11 09:56 | EDDOCDS ---
Nurse's Notes [facility] Name: Sharmila Alexander Age: 75 yrs Sex: Female : 1940 Arrival Date: 09/09/2016 Time: 01:07 Bed 3 Private MD: Maritza Diagnosis: Acute respiratory failure;Bronchopneumonia, unspecified organism-RUL;Malignant neoplasm of lower lobe, right bronchus or lung;Sepsis, unspecified organism Presentation: 09/09 01:13 Presenting complaint: EMS states: pt found in bed in resp distress, hx lung cancer. mlc SPO2 was low 60s upon EMS arrival. CPAP applied by EMS, SPO2 96%. pt lethargic upon arrival. Adult Sepsis Screening: Patient has new or worsening altered mentation (1 point). Patient has a respiratory rate of greater than or equal to 22 (1 point). Systolic blood pressure is greater than 100. Patient has a qSOFA score of 2. Patient has cough and/or SOB- Positive Sepsis Screen. Patient made CHANCE Level 2. Patient placed in exam room. Suicide/Homicide risk assessment- Unable to assess. Status: Patient is not a financial report service sales agent or dependent. Transition of care: patient was not received from another setting of care. 01:13 Acuity: CHANCE Level 2 [facility] [place] 01:13 Method Of Arrival: Amb[place] [facility] [place] Triage Assessment: 01:13 General: Appears ill, Behavior is drowsy. The patient is triaged at the bedside. See mlc Assessment in Nurses Notes section of ED record. Neurological: Level of Consciousness is lethargic. Cardiovascular: Rhythm is regular. Respiratory: Onset: The symptoms/episode began/occurred at an unknown time. Airway is patent Respiratory effort is labored, with retractions, Respiratory pattern is tachypnea. Derm: Skin is pale. 02:14 Pain: Denies pain. cf2 Historical: - Allergies: no known allergies; - Home Meds: 1. Tylenol #3 Oral 2 tabs twice a day as needed 2. Synthroid 112 mcg Oral tab 1 tab once daily 3. ropinirole 0.25 mg oral tab 1 tab nightly 4. ondansetron HCl 8 mg Oral tab 1 tab 2 times per day as needed 5. omeprazole 20 mg Oral cpDR 1 cap once daily 6. irbesartan 150 mg oral tab 1 tab once daily 7. mirtazapine 15 mg Oral tab 1 tab nightly 8. furosemide 20 mg Oral tab 1 tab once daily 9. folic acid 1 mg Oral tab 1 tab once daily 10. escitalopram oxalate 20 mg oral tab 1 tab once daily 11. carvedilol 12.5 mg oral tab 1 tab 2 times per day 12. alprazolam 0.25 mg Oral tab 1 tab every 8 hours as needed 13. carisoprodol 350 mg Oral tab 1 tab every 6 hours as needed 14. atorvastatin 20 mg oral tab 1 tab once daily - PMHx: Acute cystitis; Depression; Hypertension; lung cancer; Thyroid irradiated; - PSHx: Infusaport insertion; open heart surgery; chemotherapy; - The history from nurses notes was reviewed: but there are no nursing notes, or only partial notes available at the time of my charting. - Social history: Smoking status: unknown if patient ever smoked tobacco. Not able to communicate due to their condition. - : The pt / caregiver states he / she is not on anticoagulants. Home medication list is obtained from pill bottles. - Exposure Risk Screening:: None identified. - Immunization history:: unknown. - Family history: Not pertinent. - Social history:: unknown. Screenin:18 Advance Directives: There is an active DNR order but there is no copy available at this mlc time. There is a living will, but a copy is not available at this time. 04:02 Screening information is obtained from the patient, . Fall risk: No risks cf2 identified. Assistance ADL's: requires no assistance with activities of daily living. Abuse/DV Screen: The patient / caregiver reports he/she is: not in a situation that causes fear, pain or injury. Nutritional screening: No deficits noted. home support is adequate. Assessment: 01:14 General: Appears distressed, ill, Behavior is anxious, restless, Patient in severe cf2 respiratory distress unable to answer questions. Per , patient has lung cancer and just had CT scan last Tuesday that revealed cancer has increased after patient was unable to tolerate chemotherapy. Per , patient had "to have blood transfusions and platelets from the chemo, so they stopped it". Per , patient with N/V/D Tuesday and Tuesday and then felt better but tonight sudden rapid onset of shortness of breath. . Pain: Denies pain. Neurological: No deficits noted. EENT: No deficits noted. Cardiovascular: Rhythm is sinus rhythm. Cardiovascular: Chest pain is denied. Respiratory: Airway is compromised Respiratory effort is labored, grunting, using tripod position, Respiratory pattern is tachypnea Breath sounds are absent the patient has severe shortness of breath. GI: No deficits noted. Parent/caregiver reports the patient having diarrhea, nausea, vomiting. : No deficits noted. Derm: No deficits noted. Musculoskeletal: No deficits noted. 03:54 Adult Sepsis Screening: The patient does not have new or worsening altered mentation. cf2 Patient's respiratory rate is less than 22. Systolic blood pressure is greater than 100. Patient has a qSOFA score of 0- Negative Sepsis Screen. 04:02 Reassessment: Patient states feeling better. Patient states symptoms have improved. cf2 Patient able to speak with CPAP in place. More awake and O2 sats are holding mid-high 90's. No s/s resp distress at present time . 06:44 General: Attempted report to ICU. Awaiting call back . cf2 07:21 Reassessment: Patient appears in no apparent distress at this time. Neurological: Level kr3 of Consciousness is awake. 08:32 General: Appears comfortable, Behavior is appropriate for age. Neurological: Level of kr3 Consciousness is awake, alert. Respiratory: Airway is patent Respiratory effort is even, labored. : Moseley in place to gravity drainage. Derm: Skin is clammy, Skin is normal. Vital Signs: 01:10 BP 154 / 68 (auto/); cf2 01:12 Pulse Ox 80% ; cf2 01:13 BP 126 / 58; Pulse 97; Resp 40; Temp 97.8(TE); Pulse Ox 91% on BiPAP; Weight 51.26 kg; mlc 01:13 Pulse Ox 77% ; cf2 01:14 Pulse 100 MON; Pulse Ox 78% ; cf2 01:14 Temp 97.5; cf2 01:15 BP 126 / 58 (auto/); cf2 01:16 Pulse 98 MON; Pulse Ox 89% ; cf2 01:30 BP 92 / 58 (auto/); cf2 01:31 Pulse 93 MON; Pulse Ox 91% ; cf2 01:45 BP 106 / 59 (auto/); cf2 01:46 Pulse 84 MON; Pulse Ox 98% ; cf2 01:47 Pulse 85 MON; Pulse Ox 98% ; cf2 02:00 BP 101 / 58 (auto/); cf2 02:01 Pulse 87 MON; Pulse Ox 98% ; cf2 02:15 Pulse 85 MON; Pulse Ox 97% ; cf2 02:15 BP 116 / 60 (auto/); cf2 02:30 BP 116 / 57 (auto/); cf2 02:31 Pulse 87 MON; Pulse Ox 98% ; cf2 02:45 BP 117 / 58 (auto/); cf2 02:46 Pulse 84 MON; Pulse Ox 96% ; cf2 03:00 BP 110 / 50 (auto/); cf2 03:01 Pulse 81 MON; Pulse Ox 97% ; cf2 03:03 Pulse 80 MON; Pulse Ox 100% ; cf2 03:08 Pulse 77 MON; Pulse Ox 85% ; cf2 03:15 BP 107 / 54 (auto/); cf2 03:17 Pulse 79 MON; Pulse Ox 91% ; cf2 03:23 Pulse 79 MON; Pulse Ox 96% ; cf2 03:26 Pulse 79 MON; Pulse Ox 97% ; cf2 03:30 Pulse 79 MON; Pulse Ox 97% ; cf2 03:33 Pulse 79 MON; Pulse Ox 97% ; cf2 03:36 Pulse 79 MON; Pulse Ox 97% ; cf2 03:39 Pulse 78 MON; Pulse Ox 97% ; cf2 03:43 Pulse 78 MON; Pulse Ox 97% ; cf2 03:47 Pulse 78 MON; Pulse Ox 97% ; cf2 03:52 Pulse 78 MON; Pulse Ox 97% ; cf2 04:13 Pulse 80 MON; Pulse Ox 97% ; cf2 04:16 Pulse 79 MON; Pulse Ox 98% ; cf2 04:20 Pulse 81 MON; Pulse Ox 97% ; cf2 04:22 Pulse 81 MON; Pulse Ox 98% ; cf2 04:26 Pulse 82 MON; Pulse Ox 97% ; cf2 04:32 Pulse 86 MON; Pulse Ox 98% ; cf2 04:35 Pulse 83 MON; Pulse Ox 97% ; cf2 04:36 BP 101 / 54 (auto/); cf2 04:37 Pulse 81 MON; Pulse Ox 97% ; cf2 04:41 Pulse 82 MON; Pulse Ox 97% ; cf2 04:44 Pulse 82 MON; Pulse Ox 97% ; cf2 04:46 Pulse 82 MON; Pulse Ox 98% ; cf2 05:31 Pulse 88 MON; Pulse Ox 93% ; cf2 05:31 BP 131 / 75; cf2 05:36 Pulse 95 MON; Pulse Ox 90% ; cf2 05:40 Pulse 95 MON; Pulse Ox 92% ; cf2 05:46 Pulse 90 MON; Pulse Ox 94% ; cf2 05:53 Pulse 90 MON; Pulse Ox 91% ; cf2 05:58 Pulse 92 MON; Pulse Ox 89% ; cf2 06:04 Pulse 99 MON; Pulse Ox 88% ; cf2 06:11 Pulse 96 MON; Pulse Ox 92% ; cf2 06:16 Pulse 96 MON; Pulse Ox 93% ; cf2 06:23 Pulse 97 MON; Pulse Ox 92% ; cf2 06:27 Pulse 100 MON; Pulse Ox 92% ; cf2 06:31 Pulse 101 MON; Pulse Ox 94% ; cf2 06:36 Pulse 102 MON; Pulse Ox 90% ; cf2 07:23 BP 146 / 68; Pulse 100; Resp 40; Pulse Ox 95% on BiPAP; kr3 07:52 BP 152 / 68; Pulse 100; Resp 42; Temp 99.9(T); Pulse Ox 96% on 60% BiPAP; kr3 Vitals: 01:13 Log In Time N/A - ambulance arrival. [facility] [place] Course: 01:08 Patient visited by Christelle Fung, Handle Rounder Operator. ml3 01:08 Maritza is Private Physician. ml3 01:08 Patient moved to Waiting ml3 01:08 Patient moved to 3 ml3 01:14 The patient / caregiver is instructed regarding the plan of care and ED course. Patient cf2 has correct armband on for positive identification. Placed in gown. Bed in low position. Call light in reach. Side rails up X 1. Side rails up X2. Adult w/ patient. boat outfitter on. Pulse ox on. NIBP on. Property :Personal belongings accompany Pt. Door closed. Noise minimized. Visitors limited. Lights dimmed. Moved to private room. Verbal reassurance given. Warm blanket given. Pillow given. Head of bed elevated. Diet: Patient is NPO. Cleaned of incontinence. 01:14 Accessed using accessed w/ # 20 Flood needle, sterile technique, per hospital protocol. cf2 InfusaPort in patient's right chest wall. Clean & dry. Dressing intact. Good blood return. Flushes easily. No procedures done that require assistance. Moseley cath inserted 16 Fr. Balloon inflated. To gravity drainage. Urine specimen collected. Patient placed on CPAP. 01:15 Sandip Castellanos MD is Attending Physician. pc 01:15 Triage Initiated mlc 01:24 Patient visited by Sandip Castellanos MD. pc 01:32 -Arterial Blood Gas Sent. bb3 01:34 Patient visited by Frank Barillas PCA. kb5 01:34 EKG done. (by ED staff). Reviewed by Sandip Castellanos MD. kb5 01:40 Jenniffer Pelayo RN is Primary Nurse. cf2 01:40 Patient visited by Jenniffer Pelayo RN. cf2 01:44 Patient moved to Radiology arabella 01:44 Patient moved to 3 arabella 02:00 DIFFERENTIAL NO CHARGE Sent. pc 02:53 Urinalysis Sent. cf2 02:53 Urine Culture Sent. cf2 02:59 ARTERIAL BLOOD GAS Sent. bb3 03:06 Patient visited by Jenniffer Pelayo RN. cf2 03:10 Patient visited by Jenniffer Pelayo RN. cf2 03:11 Mary Logan is Hospitalizing Provider. pc 03:30 [facility] Payment Agreement was scanned into [employer] and attached to record. hs2 03:54 Patient visited by Jenniffer Pelayo RN. cf2 04:09 Patient visited by Jenniffer Pelayo RN. cf2 04:24 Patient visited by Jenniffer Pelayo,PAUL. cf2 04:48 Patient visited by Jenniffer Pelayo RN. cf2 05:00 Patient visited by Jenniffer Pelayo RN. cf2 05:07 Patient visited by Jenniffer Pelayo RN. cf2 06:40 Patient visited by Jenniffer Pelayo RN. cf2 06:44 Patient visited by Jenniffer Pelayo RN. cf2 07:20 Patient placed on CPAP Expiratory Pressure 6cm of H2O FIO2 60%, Rate 8Breath/Min. kr3 07:36 EKG-ADULT Returned. EDMS 14:31 ECG/EKG was scanned into [employer] and attached to record. gb Administered Medications: 02:00 Drug: heparin 100units/mL flush (infusaport) 5 ml [heparin, porcine (PF) 10 unit/mL cf2 intravenous syringe (5 mL)] Route: IVP; Site: left antecubital; 02:55 Drug: Cefepime 2 grams [cefepime 2 gram solution for injection] Route: IVPB; Rate: 100 cf2 mL/hr; Infused Over: 30 mins; Site: left antecubital; 06:58 Drug: Acetaminophen-Codeine 2 tabs [acetaminophen 300 mg-codeine 30 mg tablet (2 tabs)] cf2 Route: PO; 07:24 Follow up: Response: Pain is decreased kr3 07:19 Drug: NS 0.9% 1000 ml [sodium chloride 0.9 % intravenous solution] Route: IV; Rate: 75 kr3 mL/hr; Site: Implantable Access Device; 07:35 Follow up: IV Status: Infusion continued upon admit kr3 08:32 Drug: ALPRAZolam 0.5 mg [alprazolam 0.25 mg tablet (2 tabs)] Route: PO; kr3 Intake: 04:02 IV: 100.00ml; Total: 100.00ml. cf2 Output: 04:02 Urine: 200.00ml; Stool: 2 (Loose Stool) ; Total: 200.00ml. cf2 08:54 Urine: 160.00ml (Moseley); Stool: 1 (Loose Stool) ; Total: 360.00ml. kr3 RT: 01:15 BIPAP: Inspiratory Pressure: 14, Expiratory Pressure: 8, Backup Rate: 10, FiO2: 60%, bb3 Full face fask. Respiratory: Respiratory effort is even, labored, Respiratory pattern is regular symmetrical, agonal tachypnea 53 Breath sounds are coarse Breath sounds with crackles bilaterally. sp02 90%. Arrived via EMS on CPAP. 01:16 Respiratory: vt approx 280-310ml. bb3 01:17 Respiratory: pt lethargic. bb3 01:32 ABG's drawn from left radial artery pressure held for 5 minutes no bleeding noted bb3 pressure bandage applied specimen sent pt. tolerated well. Respiratory: BIPAP 14/8 60%. 02:59 ABG's drawn from left radial artery pressure held for 5 minutes no bleeding noted bb3 pressure bandage applied specimen sent pt. tolerated well. Respiratory: BIPAP 14/8 60% RR trending mid 40s vt approx 350-400ml. 04:53 BIPAP: FiO2: 50%. bb3 06:02 BIPAP: Inspiratory Pressure: 16, Expiratory Pressure: 6, Backup Rate: 8, FiO2: 50%. bb3 Respiratory: per dr dallas order. Order Results: Lab Order: -Arterial Blood Gas; SPEC'M 09/09/16 01:29 Test: ABG pH (ARTERIAL); Value: 7.298; Range: 7.350-7.450; Abnormal: Below low normal; Units: UNITS; Status: F Test: ABG PARTIAL PRESSURE CO2; Value: 42.4; Range: 35.0-45.0; Units: mmHg; Status: F Test: ABG PARTIAL PRESSURE O2; Value: 69.3; Range: 75.0-100.0; Abnormal: Below low normal; Units: mmHg; Status: F Test: ABG TOTAL CO2; Value: 21.6; Range: 23.0-31.0; Abnormal: Below low normal; Units: MEQ/L; Status: F Test: ABG HCO3; Value: 20.3; Range: 22.0-26.0; Abnormal: Below low normal; Units: MEQ/L; Status: F Test: ABG BASE EXCESS; Value: -5.8; Range: -2.0-2.0; Abnormal: Below low normal; Status: F Test: ABG STANDARD HCO3; Value: 19.6; Range: 22.0-26.0; Abnormal: Below low normal; Units: MEQ/L; Status: F Test: ABG O2 SATURATION; Value: 91.4; Range: 95.0-99.0; Abnormal: Below low normal; Units: %; Status: F Test: ABG DEVICE; Value: NASAL MELISSA; Status: F Lab Order: Basic Metabolic Profile; SPEC'M 09/09/16 01:30 Test: GLUCOSE, FASTING; Value: 93; Range: 83-110; Units: MG/DL; Status: F Test: BLOOD UREA NITROGEN; Value: 27; Range: 7-18; Abnormal: Above high normal; Units: MG/DL; Status: F Test: CREATININE FOR GFR; Value: 1.85; Range: 0.55-1.02; Abnormal: Above high normal; Units: MG/DL; Status: F Test: GLOMERULAR FILTRATION RATE; Value: 28.3; Range: >39; Abnormal: Below low normal; Status: F Test: SODIUM LEVEL; Value: 141; Range: 136-145; Units: MEQ/L; Status: F Test: POTASSIUM SERUM; Value: 3.8; Range: 3.5-5.1; Units: MEQ/L; Status: F Test: CHLORIDE LEVEL; Value: 108; Range: 98-107; Abnormal: Above high normal; Units: MEQ/L; Status: F Test: CARBON DIOXIDE LEVEL; Value: 22; Range: 21-32; Units: MEQ/L; Status: F Test: ANION GAP; Value: 11; Range: 8-16; Units: MEQ/L; Status: F Test: CALCIUM LEVEL; Value: 7.9; Range: 8.8-10.2; Abnormal: Below low normal; Units: MG/DL; Status: F Test Note: ; Units are mL/min/1.73 m2 Chronic Kidney Disease Staging per NKF: Stage I & II GFR >=60 Normal to Mildly Decreased Stage III GFR 30-59 Moderately Decreased Stage IV GFR 15-29 Severely Decreased Stage V GFR <15 Very Little GFR Left ESRD GFR <15 on LINUX UNIX SYSTEM ADMINISTRATOR Lab Order: CBC with Diff; SPEC'M 09/09/16 01:30 Test: WHITE BLOOD COUNT; Value: 13.1; Range: 4.0-10.0; Abnormal: Above high normal; Units: K/mm3; Status: F Test: RED BLOOD COUNT; Value: 3.38; Range: 4.00-5.40; Abnormal: Below low normal; Units: M/mm3; Status: F Test: HEMOGLOBIN; Value: 11.1; Range: 12.0-16.0; Abnormal: Below low normal; Units: g/dl; Status: F Test: HEMATOCRIT; Value: 35.0; Range: 36.0-47.0; Abnormal: Below low normal; Units: %; Status: F Test: MEAN CORPUSCULAR VOLUME; Value: 103.5; Range: 80.0-96.0; Abnormal: Above high normal; Units: fl; Status: F Test: MEAN CORPUSCULAR HEMOGLOBIN; Value: 33.0; Range: 27.0-33.0; Units: pg; Status: F Test: MEAN CORPUSCULAR HGB CONC; Value: 31.8; Range: 32.0-36.5; Abnormal: Below low normal; Units: g/dl; Status: F Test: RED CELL DISTRIBUTION WIDTH; Value: 14.1; Range: 11.5-14.5; Units: %; Status: F Test: PLATELET COUNT, AUTOMATED; Value: 104; Range: 150-450; Abnormal: Below low normal; Units: k/mm3; Status: F Test: NEUTROPHILS; Value: 87; Range: 35-75; Abnormal: Above high normal; Units: %; Status: F Test: BANDS; Value: 6; Range: < 11; Units: %; Status: F Test: LYMPHOCYTES; Value: 3; Range: 16-52; Abnormal: Below low normal; Units: %; Status: F Test: MONOCYTES; Value: 2; Range: 0-8; Units: %; Status: F Test: EOSINOPHILS; Value: 1; Range: 0-5; Units: %; Status: F Test: METAMYELOCYTES; Value: 1; Range: 0-0; Abnormal: Above high normal; Units: %; Status: F Test: MACROCYTOSIS; Value: 1+; Status: F Test: TOXIC VACUOLATION; Value: 1+; Status: F Lab Order: PLATELET ESTIMATE; SPEC09/09/16 01:30 Test: PLATELET ESTIMATE; Value: DECREASED; Range: NORMAL; Status: F Lab Order: Lactic Acid (Bernal tube on ice); SPEC' 09/09/16 01:30 Test: LACTIC ACID LEVEL, LACTATE; Value: 1.9; Range: 0.4-2.0; Units: MMOL/L; Status: F Lab Order: PT/INR; SPEC09/09/16 01:30 Test: PROTHROMBIN TIME; Value: 14.9; Range: 12.3-14.5; Abnormal: Above high normal; Units: SECONDS; Status: F Test: INR; Value: 1.16; Status: F Test Note: ; THERAPUTIC HUMAN INR VALUES INDICATIONS NORMAL RANGES PROPHYLAXIS/TREATMENT OF: VENOUS THROMBOSIS 2.0-3.0 PULMONARY EMBOLISM 2.0-3.0 PREVENTION OF SYSTEMIC EMBOLISM FROM: TISSUE HEART VALVES 2.0-3.0 ACUTE MYOCARDIAL INFARCTION 2.0-3.0 VALVULAR HEART DISEASE 2.0-3.0 ATRIAL FIBRILLATION 2.0-3.0 MECHANICAL VALVES(HIGH RISK) 2.5-3.5 RECURRENT MYOCARDIAL INFARCTION 2.5-3.5 Lab Order: PTT; [facility] 09/09/16 01:30 Test: PARTIAL THROMBOPLASTIN TIME; Value: 39.3; Range: 26.6-37.1; Abnormal: Above high normal; Units: SECONDS; Status: F Lab Order: Type & Screen; [facility] 09/09/16 02:39 Test: BLOOD TYPE; Value: O POS; Status: F Test: AB SCREEN (INDIRECT ALEJANDRO)GEL; Value: NEGATIVE; Status: F Lab Order: Urinalysis; [facility] 09/09/16 01:30 Test: APPEARANCE, URINE; Value: HAZY; Range: CLEAR; Status: F Test: COLOR, URINE; Value: YELLOW; Range: YELLOW; Status: F Test: PH,URINE; Value: 5.0; Range: 5.0-9.0; Units: UNITS; Status: F Test: SPECIFIC GRAVITY URINE AUTO; Value: 1.015; Range: 1.002-1.035; Status: F Test: PROTEIN, URINE AUTO; Value: 2+; Range: NEGATIVE; Abnormal: Above high normal; Units: mg/dL; Status: F Test: GLUCOSE, URINE (UA) AUTO; Value: NEGATIVE; Range: NEGATIVE; Units: mg/dL; Status: F Test: KETONE, URINE AUTO; Value: NEGATIVE; Range: NEGATIVE; Units: mg/dL; Status: F Test: UROBILINOGEN, URINE AUTO; Value: 0.2; Range: 0.0-2.0; Units: mg/dL; Status: F Test: BILIRUBIN, URINE AUTO; Value: NEGATIVE; Range: NEGATIVE; Status: F Test: NITRITE, URINE AUTO; Value: NEGATIVE; Range: NEGATIVE; Status: F Test: LEUKOCYTE ESTERASE, URINE AUTO; Value: NEGATIVE; Range: NEGATIVE; Status: F Test: BLOOD, URINE BLOOD; Value: NEGATIVE; Range: NEGATIVE; Status: F Test: WBC, URINE AUTO; Value: 1; Range: 0-3; Units: /HPF; Status: F Test: RBC, URINE AUTO; Value: 0; Range: 0-3; Units: /HPF; Status: F Test: BACTERIA, URINE AUTO; Value: 1+; Range: NEGATIVE; Abnormal: Above high normal; Status: F Test: SQUAMOUS EPITHELIAL CELL UR AU; Value: 0; Range: 0-6; Units: /HPF; Status: F Test: MUCUS, URINE; Value: SMALL; Range: NEGATIVE; Status: F Test: HYALINE CAST, URINE AUTO; Value: 3; Range: 0-1; Units: /LPF; Status: F Lab Order: AMYLASE; [facility] 09/09/16 01:30 Test: AMYLASE; Value: 39; Range: 25-115; Units: U/L; Status: F Lab Order: C REACTIVE PROTEIN QUANTITATIV; 09/09/16 01:30 Test: C REACTIVE PROTEIN QUANTITATIV; Value: 19.60; Range: 0.00-0.30; Abnormal: Above high normal; Units: MG/DL; Status: F Lab Order: LIVER PROFILE; 09/09/16 01:30 Test: AST/SGOT; Value: 14; Range: 15-37; Abnormal: Below low normal; Units: U/L; Status: F Test: ALT/SGPT; Value: 15; Range: 12-78; Units: U/L; Status: F Test: ALKALINE PHOSPHATASE; Value: 74; Range: 45-117; Units: U/L; Status: F Test: BILIRUBIN,TOTAL; Value: 0.5; Range: 0.2-1.0; Units: MG/DL; Status: F Test: BILIRUBIN,DIRECT; Value: 0.3; Range: 0.0-0.2; Abnormal: Above high normal; Units: MG/DL; Status: F Test: TOTAL PROTEIN; Value: 6.5; Range: 6.4-8.2; Units: GM/DL; Status: F Test: ALBUMIN; Value: 3.3; Range: 3.2-5.2; Units: GM/DL; Status: F Test: ALBUMIN/GLOBULIN RATIO; Value: 1.03; Range: 1.00-1.93; Status: F Lab Order: ARTERIAL BLOOD GAS; [facility] 09/09/16 02:41 Test: ABG pH (ARTERIAL); Value: 7.313; Range: 7.350-7.450; Abnormal: Below low normal; Units: UNITS; Status: F Test: ABG PARTIAL PRESSURE CO2; Value: 36.0; Range: 35.0-45.0; Units: mmHg; Status: F Test: ABG PARTIAL PRESSURE O2; Value: 91.2; Range: 75.0-100.0; Units: mmHg; Status: F Test: ABG TOTAL CO2; Value: 18.9; Range: 23.0-31.0; Abnormal: Below low normal; Units: MEQ/L; Status: F Test: ABG HCO3; Value: 17.8; Range: 22.0-26.0; Abnormal: Below low normal; Units: MEQ/L; Status: F Test: ABG BASE EXCESS; Value: -7.6; Range: -2.0-2.0; Abnormal: Below low normal; Status: F Test: ABG STANDARD HCO3; Value: 18.3; Range: 22.0-26.0; Abnormal: Below low normal; Units: MEQ/L; Status: F Test: ABG O2 SATURATION; Value: 96.1; Range: 95.0-99.0; Units: %; Status: F Lab Order: BASIC METABOLIC PROFILE; [facility] 09/09/16 07:00 Test: GLUCOSE, FASTING; Value: 92; Range: 83-110; Units: MG/DL; Status: F Test: BLOOD UREA NITROGEN; Value: 32; Range: 7-18; Abnormal: Above high normal; Units: MG/DL; Status: F Test: CREATININE FOR GFR; Value: 2.21; Range: 0.55-1.02; Abnormal: Above high normal; Units: MG/DL; Status: F Test: GLOMERULAR FILTRATION RATE; Value: 23.0; Range: >39; Abnormal: Below low normal; Status: F Test: SODIUM LEVEL; Value: 141; Range: 136-145; Units: MEQ/L; Status: F Test: POTASSIUM SERUM; Value: 3.9; Range: 3.5-5.1; Units: MEQ/L; Status: F Test: CHLORIDE LEVEL; Value: 108; Range: 98-107; Abnormal: Above high normal; Units: MEQ/L; Status: F Test: CARBON DIOXIDE LEVEL; Value: 20; Range: 21-32; Abnormal: Below low normal; Units: MEQ/L; Status: F Test: ANION GAP; Value: 13; Range: 8-16; Units: MEQ/L; Status: F Test: CALCIUM LEVEL; Value: 8.8; Range: 8.8-10.2; Units: MG/DL; Status: F Test Note: ; Units are mL/min/1.73 m2 Chronic Kidney Disease Staging per NKF: Stage I & II GFR >=60 Normal to Mildly Decreased Stage III GFR 30-59 Moderately Decreased Stage IV GFR 15-29 Severely Decreased Stage V GFR <15 Very Little GFR Left ESRD GFR <15 on LINUX UNIX SYSTEM ADMINISTRATOR Lab Order: CBC WITH DIFFERENTIAL; SPEC09/09/16 07:00 Test: WHITE BLOOD COUNT; Value: 10.9; Range: 4.0-10.0; Abnormal: Above high normal; Units: K/mm3; Status: F Test: RED BLOOD COUNT; Value: 3.44; Range: 4.00-5.40; Abnormal: Below low normal; Units: M/mm3; Status: F Test: HEMOGLOBIN; Value: 11.2; Range: 12.0-16.0; Abnormal: Below low normal; Units: g/dl; Status: F Test: HEMATOCRIT; Value: 36.6; Range: 36.0-47.0; Units: %; Status: F Test: MEAN CORPUSCULAR VOLUME; Value: 106.5; Range: 80.0-96.0; Abnormal: Above high normal; Units: fl; Status: F Test: MEAN CORPUSCULAR HEMOGLOBIN; Value: 32.7; Range: 27.0-33.0; Units: pg; Status: F Test: MEAN CORPUSCULAR HGB CONC; Value: 30.7; Range: 32.0-36.5; Abnormal: Below low normal; Units: g/dl; Status: F Test: RED CELL DISTRIBUTION WIDTH; Value: 13.9; Range: 11.5-14.5; Units: %; Status: F Test: PLATELET COUNT, AUTOMATED; Value: 111; Range: 150-450; Abnormal: Below low normal; Units: k/mm3; Status: F Test: NEUTROPHILS; Value: 77; Range: 35-75; Abnormal: Above high normal; Units: %; Status: F Test: BANDS; Value: 9; Range: < 11; Units: %; Status: F Test: LYMPHOCYTES; Value: 4; Range: 16-52; Abnormal: Below low normal; Units: %; Status: F Test: MONOCYTES; Value: 2; Range: 0-8; Units: %; Status: F Test: METAMYELOCYTES; Value: 5; Range: 0-0; Abnormal: Above high normal; Units: %; Status: F Test: ATYPICAL LYMPH; Value: 3; Range: 0-5; Units: %; Status: F Test: HYPOCHROMASIA; Value: 2+; Status: F Test: MACROCYTOSIS; Value: 2+; Status: F Test: TOXIC GRANULATION; Value: 1+; Status: F Test: DOHLE BODIES ; Value: 1+; Status: F Lab Order: LACTIC ACID LEVEL, LACTATE; SPEC'M 09/09/16 07:00 Test: LACTIC ACID LEVEL, LACTATE; Value: 1.8; Range: 0.4-2.0; Units: MMOL/L; Status: F Lab Order: PLATELET ESTIMATE; SPEC'M 09/09/16 07:00 Test: PLATELET ESTIMATE; Value: DECREASED; Range: NORMAL; Status: F Radiology Order: EKG-ADULT Test: EKG-ADULT REASON FOR EXAMINATION: Shortness of Breath; Stationary ECG Study; [facility] - ED; ; Test Date: 2016-09-09; Pat Name: SHARMILA ALEXANDER Department:; Room: [place] [address]; Gender: F Manager Style: MARYCRUZ; : 1940 Requested By: Sandip Whitman; Order Number: [id number] Reading MD: Lucretia Burks; Measurements; Intervals [place]; Rate: 93 P: 59; [place]: 158 QRS: -41; QRSD: 92 T: 114; QT: 358; QTc: 446; Interpretive Statements; SINUS RHYTHM; POSSIBLE LEFT ATRIAL ENLARGEMENT; MARKED LEFT AXIS DEVIATION; LEFT VENTRICULAR HYPERTROPHY AND ST-T CHANGE VS ISCHEMIA; ; Electronically Signed On 09-09-2016 7:28:12 EST by Lucretia Burks; Outcome: 03:11 Decision to Hospitalize by Provider. pc 08:20 No special radiology studies were completed. Admission hand-off: Report called to [facility] Eileen Hampton RN. 08:32 Discharge Assessment: patient administered narcotics - yes. Patient was admitted to the [address] or transferred to another facility. The following High Risk Discharge criteria are identified: None. Admitted to ICU accompanied by nurse, accompanied by tech, family with patient, via stretcher, with oxygen, on monitor, with chart. Condition: stable. 08:55 Patient left the ED. kr3 Signatures: Dispatcher [employer] EDMS Sandip Castellanos MD MD pc Bartlett, Floyd fab Barnhardt, Gloria, Reg Reg gb Antonieta, Christelle, Handle Rounder Operator Unit ml3 Safia Ruiz,RN RN kr3 Frank Barillas, [employer] S[employer]IOR OFFICER [employer] SENIOR OFFICER kb5 Lázaro Clements bb3 Oliva Loo,PAUL RN [facility] [place] Britta Stern, Reg Reg hs2 Jenniffer PelayoRN RN cf2 Corrections: (The following items were deleted from the chart) 07:35 07:23 BP 146 / 68; Pulse 100bpm; Resp 40bpm; Pulse Ox 95% CPAP; kr3 kr3 Chart Complete MTDD
== END 2016-09-10 14:55 | disposition expired | DRG 871 ==
LOC: M ED 01:07 → M ED INP 04:50 → M ICU 08:54 → M MSPAV 16:15
PROVIDERS: ADMIT Hospitalist; ATTEND Internal Medicine
DX: A41.9 Sepsis, unspecified organism (principal); J18.9 Pneumonia, unspecified organism; J96.01 Acute respiratory failure with hypoxia; C34.92 Malignant neoplasm of unspecified part of left bronchus or lung; I50.32 Chronic diastolic (congestive) heart failure; J91.0 Malignant pleural effusion; N17.9 Acute kidney failure, unspecified; Z51.5 Encounter for palliative care; Z66 Do not resuscitate; R65.20 Severe sepsis without septic shock; F41.9 Anxiety disorder, unspecified; F32.9 Major depressive disorder, single episode, unspecified; E03.9 Hypothyroidism, unspecified; I11.0 Hypertensive heart disease with heart failure; E78.00 Pure hypercholesterolemia, unspecified; I25.10 Atherosclerotic heart disease of native coronary artery without angina pectoris; Z95.5 Presence of coronary angioplasty implant and graft; Z79.82 Long term (current) use of aspirin; Z79.899 Other long term (current) drug therapy